=== PATIENT | male | born 1950 | race Caucasian/White ===

== ENCOUNTER 2020-08-18 07:10 | Outpatient (CLI) | payer MEDICARE, OTHER, SELFPAY ==
--- NOTE | 2020-08-18 07:14 | USCV_ITS ---
Austin Soriano Age: 69 Gender: M : 1950 Exam Date: 08/18/2020 07:25 Ordering Phys: Martita Roth MD Technologist: Giuseppe Jonas [place] [facility] [place]: BRUIT Risk Factors: Previous Vascular Surgery: Right Brachial BP: / Left Brachial BP: / Right Left Velocity (cm/s) Spectral Plaque Velocity (cm/s) Spectral Plaque Syst/Diast Broadening Syst/Diast Broadening 102.50/25.40 Prox CCA 124.50/ 22.30 77.20/ 19.80 Mid CCA 90.10 / 20.20 60.60/ 17.60 Distal CCA 72.90 / 20.20 61.80/ 19.50 Prox ICA 62.80 / 16.20 57.50/ 16.70 Mid ICA 66.80 / 42.50 58.60/ 17.20 Distal ICA 43.50 / 22.10 90.20 ECA 112.40 0.74 ICA/CCA 0.74 Antegrade Vertebral Antegrade 47.70/ 11.50 cm/s 70.70/ 17.90 cm/s Tri Subclavian Tri 75.40 109.4 0 CONCLUSIONS Right ICA stenosis <50%. Left ICA stenosis <50%. Mild atheromatous plaque right carotid bulb/ICA. Mild atheromatous plaque left carotid bulb/ICA. Normal antegrade Doppler flow noted in the right vertebral artery. Normal antegrade Doppler flow noted in the left vertebral artery. Saleem Sharif MD (Electronically Signed) Final Date: 18 August 2020 16:46 S
== END 2020-08-18 07:11 | disposition home or self-care (01) ==
PROVIDERS: Visit Provider Family Medicine
DX: R09.89 Other specified symptoms and signs involving the circulatory and respiratory systems (principal); I65.23 Occlusion and stenosis of bilateral carotid arteries
CPT/HCPCS: 93880

== ENCOUNTER → 2023-11-02 10:02 | Outpatient (BNVA) | payer MEDICARE, OTHER, SELFPAY | PROVIDERS: PCP Family Medicine; Visit Provider Student in an Organized Health Care Education/Training Program | DX: M79.642 Pain in left hand; M79.641 Pain in right hand; M72.0 Palmar fascial fibromatosis [Dupuytren] | CPT/HCPCS: 73130; 99203 ==

== ENCOUNTER 2024-06-13 15:16 | Outpatient (CLI) | payer MEDICARE, OTHER, SELFPAY ==
--- NOTE | 2024-06-13 15:20 | CTR_ITS ---
PROCEDURE INFORMATION: Exam: CT Abdomen And Pelvis Without And With Contrast Exam date and time: 06/13/2024 3:33 PM Age: 73 years old Clinical indication: Abdominal pain; Localized; Right lower quadrant (rlq); Prior surgery; Surgery date: 6+ months; Surgery type: Colectomy about 30 years ago; Patient HX: Ulcerative colitis; Additional info: Lower quadrant pain TECHNIQUE: Imaging protocol: Computed tomography of the abdomen and pelvis without and with contrast. Radiation optimization: All CT scans at this facility use at least one of these dose optimization techniques: automated exposure control; mA and/or kV adjustment per patient size (includes targeted exams where dose is matched to clinical indication); or iterative reconstruction. Contrast material: OMNIPAQUE 350; Contrast volume: 95 ml; Contrast route: INTRAVENOUS (IV); COMPARISON: ES surgery / GI images 09/12/2017 6:13 AM RADIATION DOSE METRICS: Total DLP (mGy-cm): 1236.69 FINDINGS: Lungs: There are minor atelectatic changes at the lung bases. Liver: There are few small hypodensities within the liver too small to adequately characterize but statistically likely representing small liver cysts. Gallbladder and biliary ducts: Two large gallstones otherwise gallbladder is unremarkable. Bile ducts are not dilated. Pancreas: Normal. No ductal dilation. Spleen: There are scattered calcified granulomas within the spleen, longstanding, otherwise spleen is unremarkable. Adrenal glands: Normal. No mass. Kidneys and ureters: There are few small hypodensities both kidneys some of which are too small to adequately characterize but statistically likely benign, otherwise kidneys are unremarkable. Stomach and bowel: Large bowel has been removed with right ileostomy present. There is a large parastomal hernia containing multiple small bowel loops without evidence of obstruction. Appendix: Appendix has been removed. Intraperitoneal space: Unremarkable. No free air. No significant fluid collection. Vasculature: Abdominal aorta is unremarkable. No evidence of aortic aneurysm or dissection. Lymph nodes: Unremarkable. No enlarged lymph nodes. Urinary bladder: Unremarkable as visualized. Reproductive: Prostate gland is moderately enlarged. Mild diffuse bladder wall thickening that may be chronic and related to the large prostate. Bones/joints: Unremarkable. No acute fracture. Soft tissues: See Stomach and bowel finding. CT/CT abdomen pelvis wo/w [id number] IMPRESSION: 1. No acute findings within the abdomen or pelvis. 2. Prior total colectomy and right-sided ileostomy with large parastomal hernia containing multiple small bowel loops without evidence of obstruction. 3. Cholelithiasis without evidence of acute cholecystitis. 4. Additional chronic findings as above.
[2024-06-13] MEDS: iohexol 350 mg/mL 500 mL Btl (per mL) IV (15:40)
== END 2024-06-13 15:17 | disposition home or self-care (01) ==
LOC: RAD 15:17
PROVIDERS: PCP Family Medicine; Visit Provider Family Medicine
DX: Z98.890 Other specified postprocedural states (principal); Z93.2 Ileostomy status; Z90.49 Acquired absence of other specified parts of digestive tract; D73.89 Other diseases of spleen; K43.5 Parastomal hernia without obstruction or gangrene; N40.0 Benign prostatic hyperplasia without lower urinary tract symptoms; K56.2 Volvulus; K80.20 Calculus of gallbladder without cholecystitis without obstruction; R10.31 Right lower quadrant pain
CPT/HCPCS: 74178

== ENCOUNTER 2024-07-31 14:59 | Emergency (ER) | payer MEDICARE, OTHER, SELFPAY ==
[2024-07-31] VITALS (15 sets, daily range): BP systolic 150–171; BP diastolic 51–92; PULSE 65–97; RESP 16–18; TEMP 36.6; O2SAT 96–99
--- NOTE | 2024-07-31 15:00 | ECG_ITS ---
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 Measurements Intervals [place] Rate: 81 P: 37 DE: 123 QRS: 13 QRSD: 101 T: 57 QT: 357 QTc: 415 Interpretive Statements SINUS RHYTHM NONSPECIFIC ST & T-WAVE ABNORMALITY Compared to ECG 09/11/2017 10:03:19 T-wave abnormality now present Supraventricular rhythm no longer present Electronically Signed On 07-31-2024 22:57:35 CDT by Dylan Ramos M.D. [id number]
--- NOTE | 2024-07-31 16:21 | XRR_ITS ---
PROCEDURE INFORMATION: Exam: XR Chest Exam date and time: 07/31/2024 4:26 PM Age: 73 years old Clinical indication: Pain; Chest pressure; Additional info: Chest pain TECHNIQUE: Imaging protocol: Radiologic exam of the chest. Views: 1 view. COMPARISON: CT abdomen pelvis wo/w [id number] 06/13/2024 3:33 PM FINDINGS: Lungs: Unremarkable. No consolidation. Pleural spaces: Unremarkable. No pleural effusion. No pneumothorax. Heart/Mediastinum: Prominent pericardial fat pad. Bones/joints: Prior median sternotomy. XR/XR chest 1V portable [id number] IMPRESSION: No acute cardiopulmonary findings.
--- NOTE | 2024-07-31 16:36 | XRR_ITS ---
PROCEDURE INFORMATION: Exam: XR Abdomen Exam date and time: 07/31/2024 4:43 PM Age: 73 years old Clinical indication: Abdominal pain; Prior surgery; Surgery date: 6+ months; Surgery type: Cholectomy/ostomy; Additional info: Abd pain TECHNIQUE: Imaging protocol: Radiologic exam of the abdomen. Views: Frontal supine view of the abdomen. 1 View. COMPARISON: CT abdomen pelvis wo/w [id number] 06/13/2024 3:33 PM FINDINGS: Gastrointestinal tract: Dilated small bowel loops in the left hemiabdomen. Dilated, air-filled bowel loop in the right hemiabdomen. Intraperitoneal space: Scattered surgical clips in the abdomen and pelvis. Organs: Calcified splenic granulomas. Bones/joints: Unremarkable. XR/XR abdomen 1V* [id number] IMPRESSION: Findings concerning for small bowel obstruction.
--- NOTE | 2024-07-31 16:37 | ED_ITS ---
HPI - Chest Pain 2 General: Chief Complaint: Chest Pain Stated Complaint: chest pressure back pain post op 4wk Time Seen by Provider: 07/31/24 16:18 History of Present Illness: 73-year-old man who presents to the [facility] room with upper low back pain with been going on for couple of days now. He says the pain has been quite severe. He had taken a hydrocodone from recent abdominal surgery that has not really helped. He says he has not had any abdominal pain in a few days. No nausea or vomiting. He has had good ostomy output. No fevers. No saddle numbness, no urinary retention or incontinence, no focal motor deficit, no sensory deficit. no recent fever. no cough. no shortness of breath. no chest pain. no abdominal pain. no nausea or vomiting. no dysuria. no altered mental status. no edema. Related Data Home Medications Medication Instructions Recorded Confirmed Unable to Assess 11/02/23 11/02/23 Allergies Allergy/AdvReac Type Severity Reaction Status Date / Time No Known Allergies Allergy Verified 07/31/24 15:11 Review of Systems 2 Narrative: Constitutional symptoms: Negative except as documented in HPI. Skin symptoms: Negative except as documented in HPI. Eye symptoms: Negative except as documented in HPI. ENMT symptoms: Negative except as documented in HPI. Respiratory symptoms: Negative except as documented in HPI. Cardiovascular symptoms: Negative except as documented in HPI. Gastrointestinal symptoms: Negative except as documented in HPI. Genitourinary symptoms: Negative except as documented in HPI. Musculoskeletal symptoms: Negative except as documented in HPI. Neurologic symptoms: Negative except as documented in HPI. Psychiatric symptoms: Negative except as documented in HPI. Endocrine symptoms: Negative except as documented in HPI. Physical Exam 2 Narrative: EXAM NARRATIVE: General: Alert, no acute distress. Skin: Warm, dry. Head: Normocephalic, atraumatic. Neck: Supple, trachea midline. Eye: Extraocular movements are intact. Ears, nose, mouth and throat: mucosa moist. Cardiovascular: Regular, Normal peripheral perfusion. Respiratory: Lungs are clear to auscultation, respirations are non-labored, breath sounds are equal, Symmetrical chest wall expansion. Gastrointestinal: Soft, Nontender, Non distended Musculoskeletal: Normal ROM, no deformity. Neurological: Alert and oriented, No focal neurological deficit observed. Psychiatric: Cooperative, appropriate mood & affect. Course 2 Vital Signs: Vital signs: Vital Signs Temperature 97.9 F 07/31/24 15:06 Pulse Rate 85 07/31/24 20:26 Respiratory Rate 16 07/31/24 20:26 Blood Pressure 153/92 07/31/24 20:00 Pulse Oximetry 96 07/31/24 20:26 Oxygen Delivery Me thod Room Air 07/31/24 20:26 MDM - Chest Pain Medical Decision Making Differential diagnosis for patient with chest pain includes but is not limited to and based on the above HPI, review of systems and physical exam: Pneumonia. unstable angina. angina. Acute coronary syndrome / SD. Pulmonary embolism. Costochondritis / musculoskeletal. Pleurisy. Pericarditis. Esophageal spasm. Pancreatis. Cholecystitis. Orders placed to evaluate differential diagnosis based on the above differential, HPI and physical exam Chest x-ray: No acute process. No infiltrate. No pneumothorax. This was reviewed and interpreted by myself the ER physician. Abdominal x-ray: Family was concerned about the patient's abdomen he has not been having pain today but had before so an x-ray was ordered. This has concern for small bowel obstruction so a CT of the abdomen was ordered this was reviewed and interpreted by myself the emergency room physician. I also reviewed the radiology report. CT of the abdomen pelvis with contrast concern for small bowel obstruction versus inflammatory process, concern for a right lower quadrant abscess, concern for cholecystitis with cholelithiasis. Patient has 0 abdominal pain and has good ostomy output. This was reviewed and interpreted by myself the emergency room physician. I also reviewed the radiology report. CT of the lumbar spine: No fracture. Good alignment. No step-offs. This was reviewed and interpreted by myself the emergency room physician. There are degenerative/spondylitic changes Consultation: I had the films uploaded and the surgeon on-call at [facility] reviewed the films and recommends transfer ER to ER. There are no beds. Lab Review: Laboratory results were reviewed and interpreted by myself the emergency room physician. No leukocytosis. No anemia. BUN and creatinine are slightly elevated at 16 and 1.2. As far as chest pain his serial cardiac markers are negative and EKG shows no ischemic changes. I reviewed the patient's medical record. Reexamination: Patient has continued to have some back pain. He has received a couple doses of medication for this. He still has no abdominal pain. No altered mental status. No focal motor deficits. We discussed the findings of the CT scan and that we are transferring him they agree with this. Assessment and plan: Back pain Noncardiac chest pain Possible small bowel obstruction Possible cholecystitis Possible right lower quadrant abscess -Patient has received pain medication with relief of his back pain. ? Dr. Jeffery Dutton at [facility] emergency room has accepted the patient. - Discussed findings and plan with patient. Answered any questions. - All laboratory values were reviewed and interpreted personally by myself, the ER physician - All imaging was reviewed and interpreted personally by myself, the ER physician. - Evaluation and treatment of this problem were appropriate in the emergency setting Lab Data 07/31/24 16:37 07/31/24 16:37 Radiology Impressions Chest X-Ray 07/31/24 16:21 IMPRESSION: No acute cardiopulmonary findings. Abdomen X-Ray 07/31/24 16:36 IMPRESSION: Findings concerning for small bowel obstruction. Abdomen/Pelvis CT 07/31/24 16:59 IMPRESSION: 1. Several mildly dilated small bowel loops, including the distal most small bowel immediately proximal to the right lower quadrant end ileostomy with fecalization of intraluminal contents. Areas of small bowel wall thickening are also noted along with surrounding fat stranding. Possible transition point at the level of the ostomy. While findings could represent a small bowel obstruction, ileus is also possible and may be associated with infectious/inflammatory enteritis with likely hypomotility. 2. Findings compatible with abscess formation in the right lower quadrant abdominal wall at the site of a previously seen parastomal hernia. 3. Cholelithiasis with findings suggestive of acute cholecystitis. A right upper quadrant ultrasound could be considered for further assessment if warranted. 4. Subtotal colectomy with right lower quadrant end ileostomy. 5. Ongoing moderate prostatomegaly. Correlate with PSA levels. Lumbar Spine CT 07/31/24 16:59 IMPRESSION: 1. No acute osseous findings. 2. Moderate spondylosis most pronounced at L3-L4 and L4-L5 with moderate spinal canal stenosis and moderate bilateral neural foraminal narrowing. Laboratory Results WBC 10.28 10^3/uL (3.29-11.43) 07/31/24 16:37 RBC 4.26 10^6/uL (3.85-5.65) 07/31/24 16:37 Hgb 11.90 g/dL (11.27-16.99) 07/31/24 16:37 Hct 37.5 % (37-53) 07/31/24 16:37 MCV 88.0 fl (82-101) 07/31/24 16:37 MCH 27.9 pg (27-33) 07/31/24 16:37 MCHC 31.7 g/dL (30-55) 07/31/24 16:37 RDW 13.4 % (12.1-15.1) 07/31/24 16:37 Plt Count 291 10^3/cmm (157-399) 07/31/24 16:37 MPV 9.6 fL (7.4-10.4) 07/31/24 16:37 Neut % (Auto) 76.6 % 07/31/24 16:37 Lymph % (Auto) 14.1 % 07/31/24 16:37 [place] % (Auto) 7.1 % 07/31/24 16:37 Eos % (Auto) 1.5 % 07/31/24 16:37 Baso % (Auto) 0.3 % 07/31/24 16:37 Neut # (Auto) 7.88 10^3/uL (1.8-7.7) H 07/31/24 16:37 Lymph # (Auto) 1.5 10^3/uL (0.8-4.8) 07/31/24 16:37 [place] # (Auto) 0.7 10^3/uL (0.2-0.9) 07/31/24 16:37 Eos # (Auto) 0.2 10^3/uL (0.0-0.8) 07/31/24 16:37 Baso # (Auto) 0.0 10^3/uL (0.0-0.1) 07/31/24 16:37 Nucleated RBC % (auto) 0 % 07/31/24 16:37 Nucleated RBCs # 0.0 /100WBC 07/31/24 16:37 Sodium 138 mmol/L (136-145) 07/31/24 16:37 Potassium 3.8 mmol/L (3.5-5.1) 07/31/24 16:37 Chloride 100 mmol/L (98-107) 07/31/24 16:37 Carbon Dioxide 25 mmol/L (22-29) 07/31/24 16:37 Anion Gap 16.8 (5-19) 07/31/24 16:37 BUN 16 mg/dL (8-23) 07/31/24 16:37 Creatinine 1.2 mg/dL (0.7-1.2) 07/31/24 16:37 GFR Calculation Not Reportable 07/31/24 16:37 Glucose 125 mg/dL (65-115) H 07/31/24 16:37 Calculated Osmolality 289 mOsm/kg (285-295) 07/31/24 16:37 Calcium 8.8 mg/dL (8.5-10.5) 07/31/24 16:37 Total Bilirubin 0.4 mg/dL (0.15-1.2) 07/31/24 16:37 AST 19 U/L (0-40) 07/31/24 16:37 ALT 12 U/L (0-41) 07/31/24 16:37 Alkaline Phosphatase 106 U/L (40-130) 07/31/24 16:37 Troponin T Baseline 38 ng/L (0-15) H 07/31/24 16:37 Troponin T 120 Minute 32.55 ng/L (0-15) H 07/31/24 18:37 Delta Troponin T -5.45 ABS# (0-10) L 07/31/24 18:37 NT-Pro-B Natriuret Pep 858 pg/mL (0-125) H 07/31/24 16:37 Total Protein 6.9 g/dL (6.6-8.7) 07/31/24 16:37 Albumin 3.9 g/dL (3.5-5.2) 07/31/24 16:37 Globulin 3.0 g/dL (1.3-4.6) 07/31/24 16:37 All radiology interpretation(s) finalized by discharge Discharge Plan Discharge Patient Disposition: Xfer Short-Term Hosp Clinical Impression: Back pain, Non-cardiac chest pain, Intra-abdominal abscess, Small bowel obstruction, Cholelithiasis Condition: Stable Referrals: Martita oRth MD [Primary Care Provider] - Coding Level of Care Code ED Ladle Liner for Lashell Duran
[2024-07-31 16:48] LABS: Basophils % 0.3 %; Eosinophils # 0.2 10^3/uL (0.0-0.8); Eosinophils % 1.5 %; Hematocrit 37.5 % (37-53); Lymphocytes # 1.5 10^3/uL (0.8-4.8); Lymphocytes % 14.1 %; Mean Corpuscular HGB Conc 31.7 g/dL (30-55); Mean Corpuscular Hemoglobin 27.9 pg (27-33); Mean Platelet Volume 9.6 fL (7.4-10.4); Monocytes # 0.7 10^3/uL (0.2-0.9); Monocytes % 7.1 %; Neutrophils # 7.88 10^3/uL (1.8-7.7); Neutrophils % 76.6 %; Nucleated Red Blood Cells % 0 %; Platelet Count 291 10^3/cmm (157-399); Red Blood Count 4.26 10^6/uL (3.85-5.65); Red Cell Distribution Width 13.4 % (12.1-15.1); White Blood Count 10.28 10^3/uL (3.29-11.43)
--- NOTE | 2024-07-31 16:59 | CTR_ITS ---
PROCEDURE INFORMATION: Exam: CT Lumbar Spine Without Contrast Exam date and time: 07/31/2024 6:06 PM Age: 73 years old Clinical indication: Low back pain; Additional info: Severe back pain TECHNIQUE: Imaging protocol: Computed tomography of the lumbar spine without contrast. Radiation optimization: All CT scans at this facility use at least one of these dose optimization techniques: automated exposure control; mA and/or kV adjustment per patient size (includes targeted exams where dose is matched to clinical indication); or iterative reconstruction. COMPARISON: MR lumbar spine wo con* [id number] 05/23/2018 1:35 PM RADIATION DOSE METRICS: Total DLP (mGy-cm): 819.91 FINDINGS: Bones/joints: No acute fracture. Vertebral body heights are maintained. [id number] degenerative changes throughout the lumbar spine. Moderate facet arthrosis in the lower lumbar spine. Disc bulge, ligamentum flavum thickening, and bilateral facet arthropathy at L3-L4 results in moderate spinal canal stenosis and moderate bilateral neural foraminal narrowing. Similar findings also seen at L4-L5. Soft tissues: Unremarkable. CT/CT lumbar spine wo con* [id number] IMPRESSION: 1. No acute osseous findings. 2. Moderate spondylosis most pronounced at L3-L4 and L4-L5 with moderate spinal canal stenosis and moderate bilateral neural foraminal narrowing.
--- NOTE | 2024-07-31 16:59 | CTR_ITS ---
PROCEDURE INFORMATION: Exam: CT Abdomen And Pelvis With Contrast Exam date and time: 07/31/2024 6:09 PM Age: 73 years old Clinical indication: Abdominal pain TECHNIQUE: Imaging protocol: Computed tomography of the abdomen and pelvis with contrast. Radiation optimization: All CT scans at this facility use at least one of these dose optimization techniques: automated exposure control; mA and/or kV adjustment per patient size (includes targeted exams where dose is matched to clinical indication); or iterative reconstruction. Contrast material: OMNI 350; Contrast volume: 100 ml; Contrast route: INTRAVENOUS (IV); COMPARISON: CT abdomen pelvis wo/w [id number] 06/13/2024 3:33 PM RADIATION DOSE METRICS: Total DLP (mGy-cm): 629.13 FINDINGS: Lungs: Mild bibasilar atelectasis. Heart: The heart appears mildly enlarged. Mitral annular calcifications. Coronary arteries: Scattered coronary artery calcifications. Liver: Scattered hepatic hypodensities remain too small to characterize but likely represent small cysts. No suspicious liver lesions. Gallbladder and biliary ducts: 1.8 cm calculus near the gallbladder neck. A smaller calculus is seen in the gallbladder fundus. Prominence of the gallbladder wall. Mild pericholecystic fat stranding. Mild intrahepatic biliary ductal dilatation. Pancreas: Normal. No ductal dilation. Spleen: Calcified splenic granulomas. Adrenal glands: Normal. No mass. Kidneys and ureters: Scattered subcentimeter hypodensities in bilateral kidneys remain too small to characterize but likely represent cysts. No hydronephrosis. Stomach and bowel: Status post subtotal colectomy with a right lower quadrant end ileostomy. Several segments of the small bowel appear mildly dilated and are predominantly gas-filled. There is fecalization of intraluminal contents within the distal most aspect of the small bowel immediately prior to the ostomy. Possible transition point in the right lower quadrant immediately proximal to the ostomy (for example series 3, image 58). Areas of small bowel wall thickening are noted along with surrounding fat stranding in the vicinity. Appendix: No evidence of appendicitis. Intraperitoneal space: Mild fat stranding along the mesenteric root. Vasculature: Unremarkable. No abdominal aortic aneurysm. Lymph nodes: A few prominent right lower quadrant mesenteric lymph nodes are seen. Urinary bladder: Unremarkable as visualized. Reproductive: The prostate remains enlarged and mildly heterogeneous. Bones/joints: Unremarkable. No acute fracture. Soft tissues: Interval reduction of the previously seen peristomal hernia. There is a thick-walled, mildly complex fluid collection at the site of the prior parastomal hernia which measures approximately 4.6 x 7.6 x 6.8 cm with surrounding subcutaneous fat stranding and edema. CT/CT abdomen pelvis w con* [id number] IMPRESSION: 1. Several mildly dilated small bowel loops, including the distal most small bowel immediately proximal to the right lower quadrant end ileostomy with fecalization of intraluminal contents. Areas of small bowel wall thickening are also noted along with surrounding fat stranding. Possible transition point at the level of the ostomy. While findings could represent a small bowel obstruction, ileus is also possible and may be associated with infectious/inflammatory enteritis with likely hypomotility. 2. Findings compatible with abscess formation in the right lower quadrant abdominal wall at the site of a previously seen parastomal hernia. 3. Cholelithiasis with findings suggestive of acute cholecystitis. A right upper quadrant ultrasound could be considered for further assessment if warranted. 4. Subtotal colectomy with right lower quadrant end ileostomy. 5. Ongoing moderate prostatomegaly. Correlate with PSA levels.
[2024-07-31] MEDS: HYDROmorphone 1 mg/mL INJ 1 mL 0.5 MG IVP ×2 (17:05→20:43)
[2024-07-31 17:12] LABS: Troponin(5th) Baseline 38 ng/L (0-15)
[2024-07-31 17:24] LABS: Alanine Aminotransferase 12 U/L (0-41); Albumin Level 3.9 g/dL (3.5-5.2); Alkaline Phosphatase 106 U/L (40-130); Anion Gap 16.8 (5-19); Aspartate Amino Transferase 19 U/L (0-40); Blood Urea Nitrogen 16 mg/dL (8-23); Calcium 8.8 mg/dL (8.5-10.5); Carbon Dioxide 25 mmol/L (22-29); Chloride 100 mmol/L (98-107); Creatinine Clr Calc Pharmacy 55.6887; Glucose 125 mg/dL (65-115); NT Pro B Type Natriuretic Pept 858 pg/mL (0-125); Osmolality Calculated 289 mOsm/kg (285-295); Potassium 3.8 mmol/L (3.5-5.1); Sodium 138 mmol/L (136-145); Total Bilirubin 0.4 mg/dL (0.15-1.2); Total Protein 6.9 g/dL (6.6-8.7)
[2024-07-31] MEDS: dexamethasone 10 mg/mL INJ IVP (17:42)
--- NOTE | 2024-07-31 18:21 | ECG_ITS ---
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 Measurements Intervals [place] Rate: 77 P: 29 NC: 120 QRS: 4 QRSD: 102 T: 47 QT: 378 QTc: 429 Interpretive Statements SINUS RHYTHM Compared to ECG 07/31/2024 15:00:18 T-wave abnormality no longer present Electronically Signed On 07-31-2024 23:04:39 CDT by Dylan Ramos M.D. [email or web address]
[2024-07-31] MEDS: iohexol 350 mg/mL 500 mL Btl (per mL) IV (18:27)
[2024-07-31 19:40] LABS: Troponin 5 2HR 32.55 ng/L (0-15)
[2024-07-31 19:42] LABS: Troponin 5 2HR Delta -5.45 ABS# (0-10)
== END 2024-07-31 22:01 | disposition short-term general hospital (02) ==
PROVIDERS: Emergency Provider Emergency Medicine; PCP Family Medicine
DX: K56.609 Unspecified intestinal obstruction, unspecified as to partial versus complete obstruction (principal); M54.50 Low back pain, unspecified; R07.89 Other chest pain; K65.1 Peritoneal abscess; K80.20 Calculus of gallbladder without cholecystitis without obstruction
CPT/HCPCS: 36415; 71045; 72131; 74018; 74177; 80053; 83880; 84484; 85025; 93005; 96374; 96375; 96376; 99285; J1100; J1171

== ENCOUNTER 2025-10-05 13:46 | Outpatient (CLI) | payer MEDICARE, OTHER, SELFPAY ==
--- NOTE | 2025-10-05 13:55 | CT_ITS ---
WS: [id number] CT ABDOMEN PELVIS TECHNIQUE: Noncontrast CT of the abdomen and pelvis with coronal and sagittal reformatted images. CLINICAL INFORMATION: RIGHT SIDED ABDOMINAL PAIN COMPARISON: 07/31/2024 DLP: 493.[address] scans at [facility] use at least one of these dose optimization techniques: automated exposure control; mA and/or kV adjustment per patient size (includes targeted exams where dose is matched to clinical indication); or iterative reconstruction. FINDINGS: Diffuse gallbladder wall thickening with induration and fluid distention of the gallbladder compatible with acute cholecystitis. Cholelithiasis. Large calculus near the gallbladder neck. Subsegmental atelectasis in the lung bases RIGHT greater than LEFT. Small esophageal hernia. Tiny cyst in the LEFT hepatic lobe and at the dome of the liver. Coronary calcification. Adrenal glands are normal. Splenic granulomas. Fatty atrophy of the pancreas. No hydronephrosis in either kidney. Cortical atrophy bilaterally. Small cyst upper pole LEFT kidney. Normal caliber abdominal aorta. Aortic calcification. Diffuse bladder wall thickening can be seen with chronic cystitis or bladder outlet obstruction. Enlarged prostate measuring 4.9 x 4.6 cm Prior subtotal colectomy with RIGHT lower quadrant end ileostomy. Parastomal hernia in the RIGHT lower quadrant although no evidence of high-grade obstruction. A few herniated loops of slightly distended and decompressed small bowel in the parastomal hernia New LEFT periumbilical hernia with herniated small bowel loop although no evidence of high-grade obstruction. CT/CT abdomen pelvis wo con [id number] IMPRESSION: 1. Diffuse gallbladder wall thickening with surrounding induration and inflamm atory stranding in the surrounding mesenteric fat. Findings suspicious for acut e cholecystitis. This could be further evaluated with ultrasound. Large calculu s near the gallbladder neck similar to the prior studies. 2. Prior subtotal colectomy with ileostomy and RIGHT lower quadrant peristomal hernia. No evidence of high-grade obstruction. Recommend correlation with ileo stomy function. 3. New LEFT periumbilical hernia containing a loop of nonobstructed small pantera l 4. Markedly enlarged prostate with diffuse bladder wall thickening likely due to cystitis or bladder outlet obstruction. 5. Subsegmental atelectasis RIGHT greater than LEFT lower lobe.
== END 2025-10-05 13:47 | disposition home or self-care (01) ==
PROVIDERS: PCP Electrodiagnostic Medicine; Visit Provider Electrodiagnostic Medicine
DX: K80.20 Calculus of gallbladder without cholecystitis without obstruction (principal); R93.3 Abnormal findings on diagnostic imaging of other parts of digestive tract; Z98.890 Other specified postprocedural states; K43.5 Parastomal hernia without obstruction or gangrene; K42.9 Umbilical hernia without obstruction or gangrene; N40.0 Benign prostatic hyperplasia without lower urinary tract symptoms; J98.11 Atelectasis; K44.9 Diaphragmatic hernia without obstruction or gangrene; I25.10 Atherosclerotic heart disease of native coronary artery without angina pectoris; D73.89 Other diseases of spleen; K86.89 Other specified diseases of pancreas; N26.1 Atrophy of kidney (terminal); N28.1 Cyst of kidney, acquired; I70.0 Atherosclerosis of aorta; N32.89 Other specified disorders of bladder; R93.89 Abnormal findings on diagnostic imaging of other specified body structures
CPT/HCPCS: 74176

== ENCOUNTER 2025-10-05 16:18 | Emergency (ER) | payer MEDICARE, OTHER, SELFPAY ==
[2025-10-05] VITALS (7 sets, daily range): BP systolic 130–145; BP diastolic 70–101; PULSE 79–87; TEMP 36.5; O2SAT 92–97; BMI 26.2
--- OUTSIDE RECORDS SUMMARY | 2025-10-05 16:24 | XMS_ITS | Data Portability ---
Author Organization [facility] Adolfo Salas [facility] Kayley Chase, [facility] Address [address] [place] [address] Care Team Providers Care Alarm Technician Name Role Phone GLENIS HURST Primary Care Provider Assessment Encounter Date Assessment Date Assessment LastModified by Organization Details LastModified Time 06/24/2025 06/24/2025 Document scribed by Minh Suggs Scribe. I was present during interview and exam. I have reviewed and agree with above documentation . Dr. Henry Barreto. [email or web address] Not available 06/24/2025 15:48:59 09/24/2025 09/24/2025 Document scribed by Minh Suggs Scribe. I was present during interview and exam. I have reviewed and agree with above documentation . Dr. Henry Barreto. [email or web address] Not available 09/24/2025 12:02:25 10/05/2025 10/05/2025 Document scribed by Minh Suggs Scribe. I was present during interview and exam. I have reviewed and agree with above documentation . Dr. Henry Barreto. [email or web address] Not available 10/05/2025 12:08:58 Plan of Treatment Reminders Order Date Submit Date Provider Last Modified By Organization Details Last Modified Time Details Appointments OFFICE VISIT 20 2024 10:00A M Henry Barreto, DO Not available Not available Not available LAB 2024 11:40A M LAB Not available Not available Not available RECHECK 2025 09:50A M Henry Barreto, DO Not available Not available Not available Lab CBC 2024 025 [email or web address] [facility], [address], [address], [place], [address], 10/05/2025 13:29:25 C-react dinesh protein , quantit ative, serum or plasma 2024 025 [email or web address] 7 [facility], [address], [place], [address], 10/05/2025 13:29:25 CMP, serum or plasma 2024 025 [facility], [address], [address], [place], [address], 10/05/2025 13:52:44 thyrotr opin, QN, serum or plasma 2024 025 [facility], [address], [address], [place], [address], 10/05/2025 13:51:28 T3, free, serum or plasma 2024 025 [email or web address] 7 [facility], [address], [facility], [place], [address], 10/05/2025 13:29:25 T4, free, serum 2024 025 [email or web address] 7 [facility], [address], [address], [place], [address], 10/05/2025 13:29:25 PTH (parath yroid hormone ), intact, serum or plasma 2024 025 [email or web address] 7 [facility], [address], [address], [place], [address], 10/05/2025 13:29:25 CMP, serum or plasma 2024 025 [email or web address] 7 [facility], [address], [facility] 1, [place], [address], 09/24/2025 14:29:31 lipid panel, blood 2024 025 [email or web address] 7 [facility], [address], [facility], [place], [address], 09/24/2025 14:29:31 CBC 2024 025 [email or web address] 7 [facility], [address], [facility] 1, [place], [address], 09/24/2025 14:29:31 Referral orthope dic surgeon referra l 2024 025 [email or web address] Josep Washington , [address] [place], [address], 07/27/2025 15:44:42 Procedures None recorde d. Surgeries None recorde d. Imaging CT, abdomen + pelvis, w/ contras t - with oral and IV contras t, STAT 2024 025 [facility] (Scheduling Orders), [address] [place], [address], 10/05/2025 15:55:18 XR, shoulde r, 2 or more view [address] ([facility]), [address] [place], [address], 06/25/2025 18:27:47 XR, elbow, 3 or more view [address] ([facility]), [address] [place], [address], 06/25/2025 18:27:47 Medication Orders prednis one 20 mg tablet 2024 025 [facility], [address], [place], [place], [id number], 07/08/2025 05:01:16 hydroco done 5 mg-acet aminoph en 325 mg tablet 2024 025 [facility], [address], [place], [place], [id number], 06/24/2025 17:54:53 ondanse randa HCl (PF) 4 mg/2 mL injecti on solutio n 2023 024 [email or web address] Not available 06/24/2025 15:10:09 ondanse randa 4 mg disinte grating tablet 2023 025 [id number], [address], [facility], [place], [address], 06/24/2025 15:10:41 Patient TargetsNo targets recorded. Patient InstructionsNo instructions recorded. Reason for Referral Orthopedic Surgeon Referral for Pain of elbow region Referring Physician: Henry Barreto, Family Medicine, Encounter Date: 06/24/2025 Results Created Date Observation Date Name Description Value Unit Range Abnormal Flag Note LastModifiedBy Organization Detail LastModifiedTime 09/24/2009/24/2025 CBC WBC 8.4 x10 4.5 - 10.5 Not Available [facility] [address] [facility] [address], [place], [address], 09/24/2025 13:07:43 09/24/20 25 09/24/2025 CBC RBC 5.02 x10 4.30 - 5.90 Not Available [facility] [address], [place], [address], 09/24/2025 13:07:43 09/24/20 25 09/24/2025 CBC HGB 15.1 g/dL 13.5 - 18.0 Not Available [facility] [address] [facility] 1, [place], [address], 09/24/2025 13:07:43 09/24/20 25 09/24/2025 CBC HCT 45.6 % 35.0 - 60.0 Not Available [facility] [address] [facility] [address], [place], [address], 09/24/2025 13:07:43 09/24/20 25 09/24/2025 CBC MCV 90.8 fL 80.0 - 99.9 Not Available [facility] [address] [facility] [address] 1, [place], [address], 09/24/2025 13:07:43 09/24/20 25 09/24/2025 CBC MCH 30.0 pg 27.0 - 32.0 Not Available [facility] [address] [facility], [place], [address], 09/24/2025 13:07:43 09/24/20 25 09/24/2025 CBC MCHC 33.0 g/dL 32.0 - 36.0 Not Available [facility] [address] [facility] [address] [address], [place], [address], 09/24/2025 13:07:43 09/24/20 25 09/24/2025 CBC RDW 14.1 % 11.5 - 14.5 Not Available [facility] [address] [facility] [address] 1, [place], [address], 09/24/2025 13:07:43 09/24/20 25 09/24/2025 CBC plt 247.9 x10 150.0 - 451.0 Not Available [facility] [address] [facility] [address] [address], [place], [address], 09/24/2025 13:07:43 09/24/20 25 09/24/2025 CBC lymphocytes % 17.0 % 20.0 - 50.0 low Not Available [facility] [address] [facility], [place], [address], 09/24/2025 13:07:43 09/24/20 25 09/24/2025 CBC granulcytes % 73.9 % 30.0 - 70.0 high Not Available [facility] [address] [address], [place], [address], 09/24/2025 13:07:43 09/24/20 25 09/24/2025 CBC monocytes % 5.8 % 2.0 - 16.0 Not Available [facility] [address] [address], [place], [address], 09/24/2025 13:07:43 09/24/20 25 09/24/2025 CBC granulcytes# 6.2 x10 Not Destini ilable [facility] [address] [address], [place], [address], 09/24/2025 13:07:43 09/24/20 25 09/24/2025 CBC lymphocytes # 1.4 x10 Not Available [facility] [address] [address], [place], [address], 09/24/2025 13:07:43 09/24/20 25 09/24/2025 CBC monocytes # 0.5 x10 Not Avai lable [facility] [address] [address], [place], [address], 09/24/2025 13:07:43 09/24/20 25 09/24/2025 LIPID PROFI LE (MALE ) cholesterol 229.0 mg/dL 0.0 - 200.0 high Not Available [facility] [address] [facility], [place], [address], 09/24/2025 13:36:33 09/24/20 25 09/24/2025 LIPID PROFI LE (MALE ) trig 139.0 mg/dL 0.0 - 150.0 Not Available [facility] [address] [facility] [address], [place], [address], 09/24/2025 13:36:33 09/24/20 25 09/24/2025 LIPID PROFI LE (MALE ) HDL - direct 70.0 mg/dL >40.0 Not Available [facility] [address] [facility] [address], [place], [address], 09/24/2025 13:36:33 09/24/20 25 09/24/2025 LIPID PROFI LE (MALE ) VLDL - direct 27.8 mg/dL Not Available [facility] [address] [facility] [address], [place], [address], 09/24/2025 13:36:33 09/24/20 25 09/24/2025 LIPID PROFI LE (MALE ) LDL - direct 131.2 mg/dL 0.0 - 130.0 high Not Available [facility] [address] [facility] [address], [place], [address], 09/24/2025 13:36:33 09/24/20 25 09/24/2025 CMP (MALE ) glucose 97.0 mg/dL 60.0 - 99.0 Not Available [facility] [address] [address], [place], [address], 09/24/2025 13:36:35 09/24/20 25 09/24/2025 CMP (MALE ) BUN (blood urea nitrogen) 30.0 mg/dL 10.0 - 26.0 high Not Available [facility] [address] [facility] [address], [place], [address], 09/24/2025 13:36:35 09/24/20 25 09/24/2025 CMP (MALE ) creatinine (serum) 1.7 mg/dL 0.4 - 1.5 high Not Available [facility] [address] [facility] [address], [place], [address], 09/24/2025 13:36:35 09/24/20 25 09/24/2025 CMP (MALE ) BUN/creatini ne ratio 18.18 ratio Not Available [facility] [address] [facility] [address], [place], [address], 09/24/2025 13:36:35 09/24/20 25 09/24/2025 CMP (MALE ) total protein 7.2 g/dL 6.0 - 8.5 Not Available [facility] [address] [facility] [address], [place], [address], 09/24/2025 13:36:35 09/24/20 25 09/24/2025 CMP (MALE ) total bilirubin 0.8 mg/dL 0.2 - 1.3 Not Available [facility] [address] [facility] [address], [place], [address], 09/24/2025 13:36:35 09/24/20 25 09/24/2025 CMP (MALE ) albumin 4.5 g/dL 3.5 - 5.5 Not Available [facility] [address] [facility] [address], [place], [address], 09/24/2025 13:36:35 09/24/20 25 09/24/2025 CMP (MALE ) globulin 2.7 calc Not Available [facility] [address] [facility] [address], [place], [address], 09/24/2025 13:36:35 09/24/20 25 09/24/2025 CMP (MALE ) AST (SGOT) 31.0 U/L 0.0 - 46.0 Not Available [facility] [address] [facility] [address], [place], [address], 09/24/2025 13:36:35 09/24/20 25 09/24/2025 CMP (MALE ) altv (SGPT) 14.0 U/L 13.0 - 69.0 Not Available [facility] [address] [facility] [address], [place], [address], 09/24/2025 13:36:35 09/24/20 25 09/24/2025 CMP (MALE ) A/G ratio 1.7 ratio Not Available [facility] [address] [facility] [address], [place], [address], 09/24/2025 13:36:35 09/24/20 25 09/24/2025 CMP (MALE ) ALP phos 55.0 U/L 30.0 - 140.0 Not Available [facility] [address] [facility] [address], [place], [address], 09/24/2025 13:36:35 09/24/20 25 09/24/2025 CMP (MALE ) calcium 8.8 mg/dL 8.4 - 10.5 Not Available [facility] [address] [facility] [address], [place], [address], 09/24/2025 13:36:35 09/24/20 25 09/24/2025 CMP (MALE ) sodium 134.0 mmol/ L 136.0 - 145.0 low Not Available [facility] [address] [facility] [address], [place], [address], 09/24/2025 13:36:35 09/24/20 25 09/24/2025 CMP (MALE ) potassium 3.9 mmol/ L 3.5 - 5.1 Not Available [facility] [address] [facility] [address], [place], [address], 09/24/2025 13:36:35 09/24/20 25 09/24/2025 CMP (MALE ) chloride 101.0 mmol/ L 98.0 - 110.0 Not Available [facility] [address] [facility] [address], [place], [address], 09/24/2025 13:36:35 09/24/20 25 09/24/2025 CMP (MALE ) C02 23.0 mmol/ L 22.0 - 31.0 Not Available [facility] [address], [place], [address], 09/24/2025 13:36:35 09/24/20 25 09/24/2025 CMP (MALE ) anion gap 10.0 calc Not Available [facility] [address] [facility], [place], [address], 09/24/2025 13:36:35 09/24/20 25 09/24/2025 CMP (MALE ) osmolality 282.9 calc Not Available [facility] [address] [facility], [place], [address], 09/24/2025 13:36:35 09/24/20 25 09/24/2025 CMP (MALE ) eGFR calculated 52.7 Not Available [facility] [address] [facility], [place], [address], 09/24/2025 13:36:35 06/25/20 25 06/24/2025 XR, shoul candida, 2 or more view No observ ation record ed. [facility] [address], [place], [address], 07/06/2025 17:09:57 06/25/20 25 06/24/2025 XR, elbow , 3 or more view No observ ation record ed. [facility] [address], [place], [address], 07/06/2025 17:09:58 10/05/20 25 10/05/2025 CT, abdom en + pelvi s, w/ contr ast No observ ation record ed. [facility] [address] [place], [address], 10/05/2025 15:55:19 Result Notes None recorded. Problems Name Problem SNOMED Code Status Onset Date Resolution Date Notes Provider Name and Address Organization Details Recorded Time Essential hypertension 03273875 Active 2024 Ashley schrader [facility] 5 15:11:17 Acute poliomyelitis 989965043 Active 2024 Ashley schrader [facility] 5 15:14:25 Large prostate 469371405 Active 2024 Ashley schrader [facility] 5 15:14:48 History of gout 854359246 Active 2024 Ashley schrader [facility] 5 15:15:23 Hyperlipidemia 66285344 Active 2024 Orlando schrader [facility] 5 12:14:22 Ulcerative colitis 77522941 Active 2024 Orlando schrader [facility] 5 12:28:20 Multinodular goiter 144404923 Active 2024 Orlando schrader [facility] 5 12:28:21 Problem Notes None recorded. Procedures Surgical History Date Name Laterality Status Provider Name and Address Organization Details Recorded Time 3 Laceration Repair completed Jessica Du [facility] 03/25/2023 15:17:41 3 Laceration Repair completed WES CAO PA-C [address] [place], [address], [facility] 03/23/2023 10:08:42 Knee Surgery completed [facility], [place] 06/24/2025 15:28:48 procedure on bone of ankle completed [facility], [place] 06/24/2025 15:29:06 [facility] 15:29:18 operation on heart completed [facility], [place] 06/24/2025 15:29:46 [facility] 15:30:46 Imaging Results None recorded. Procedure Notes None recorded. Medical Equipment None Reported. Allergies No known drug allergies Medications Name Sig Start Date Stop Date Status Note LastModified by Organization Details LastModified Time Anti-Diarrh eal (loperamide ) 2 mg tablet 06/24 completed Not Available Not Available Not Available atorvastati n 40 mg tablet TAKE ONE TABLET BY MOUTH AT BEDTIME active Not Available Not Available No t Available ketoconazol e 2 % shampoo Apply topically TO SCALP twice a WEEK active Not Available Not Available No t Available hydrocodone 5 mg-acetamin ophen 325 mg tablet TAKE ONE TABLET BY MOUTH THREE TIMES DAILY as needed for SEVERE pain active Not Available Not Available No t Available ondansetron HCl 4 mg tablet TAKE ONE TABLET BY MOUTH EVERY SIX hours NEEDED FOR nausea AND vomiting. 06/24 completed Not Available Not Available Not Available prednisone 20 mg tablet Take 1 tablet every day by oral route for 7 days. 07/08 completed Not Available Not Available Not Available triamcinolo ne acetonide 0.025 % lotion Apply topically TO ostomy irritatio n THREE TIMES DAILY FOR TWO WEEKS. 06/24 completed Not Available Not Available Not Available allopurinol 100 mg tablet TAKE 2 TABLETS BY MOUTH DAILY active Not Available Not Available No t Available sildenafil 100 mg tablet TAKE ONE TABLET BY MOUTH every other DAY NEEDED 30 MINUTES prior TO intercour se active Not Available Not Available No t Available oxycodone-a cetaminophe n 5 mg-325 mg tablet 06/24 completed Not Available Not Available Not Available tamsulosin 0.4 mg capsule TAKE 1 CAPSULE BY MOUTH DAILY active Not Available Not Available No t Available amlodipine 10 mg tablet TAKE 1 TABLET BY MOUTH DAILY active Not Available Not Available No t Available nystatin 100,000 unit/gram topical cream Apply ONE applicati on topically TWICE DAILY 06/24 completed Not Available Not Available Not Available hydrochloro thiazide 25 mg tablet TAKE 1 TABLET BY MOUTH DAILY active Not Available Not Available No t Available mupirocin 2 % topical ointment apply ONE applicati on topically THREE TIMES DAILY 06/24 completed Not Available Not Available Not Available ondansetron 4 mg disintegrat ing tablet PLACE 1 TABLET ON TOP OF TONGUE AND ALLOW TO DISSOLVE 3 TIMES A DAY NEEDED 06/24 completed Not Available Not Available Not Available betamethaso ne dipropionat e 0.05 % lotion Apply a thin layer topically daily TO affected AREA FOR SEVEN DAYS. 06/24 completed Not Available Not Available Not Available ondansetron HCl (PF) 4 mg/2 mL injection solution Take 4 mg by injection route. 06/24 completed Not Available Not Available Not Available Paxlovid 300 mg (150 mg x 2)-100 mg tablets in a dose pack TK 2 NIRMATREL VIR TS AND 1 RITONAVIR T TOGETHER PO BID FOR 5 DAYS BID FOR 5 DAYS 07/15 completed Not Available Not Available Not Available Vitals Date Recorded Body height Body mass index (BMI) Body weight Oxygen saturation Heart rate Respiratory rate Systolic And Diastolic Provider Name and Address Organization Details Last Updated DateTime 5 175.26 cm 29.7 kg/m2 51712.7 7 g 97 % 79 /min 18 /min 138/88 mm[Hg] Ashley James [facility] 5 15:37:09 Date Recorded Body height Body mass index (BMI) Body weight Oxygen saturation Heart rate Respiratory rate Body temperature Systolic And Diastolic Provider Name and Address Organization Details Last Updated DateTime 4 175.26 cm 27.2 kg/m2 41953 g 98 % 84 /min 18 /min 98.2 [degF] 128/80 mm[Hg] Reyna Dyer [facility] 4 17:43:29 Date Recorded Body height Body mass index (BMI) Body weight Provider Name and Address Organization Details Last Updated DateTime 07/31/2024 175.26 cm 25.7 kg/m2 36783.07 g Reyna Dyer [facility] 07/31/2024 15:47:56 Date Recorded Body height Body mass index (BMI) Body weight Oxygen saturation Heart rate Respiratory rate Systolic And Diastolic Provider Name and Address Organization Details Last Updated DateTime 5 175.26 cm 28.3 kg/m2 74421.2 4 g 96 % 82 /min 18 /min 130/70 mm[Hg] Ashley James [facility] 5 11:48:59 Date Recorded Body height Body mass index (BMI) Body weight Oxygen saturation Heart rate Respiratory rate Systolic And Diastolic Provider Name and Address Organization Details Last Updated DateTime 5 175.26 cm 27.5 kg/m2 89302.8 8 g 97 % 83 /min 18 /min 128/88 mm[Hg] Ashley [facility] 5 12:08:09 Social History None recorded. Functional Status None recorded. Mental Status None recorded. Family History Relationship Description Onset Age of this Age Resolved Age Notes LastModified by Organization Details LastModified Time Father No current problems or disability [email or web address] Not available 06/24 15:37:44 Mother No current problems or disability [email or web address] Not available 06/24 15:37:44 Medical History No medical history recorded. Immunizations Vaccine Type Date Status Note Provider Nam e and Address Organization Details Recorded Time Influenza, split virus, trivalent, PF 5 completed CAL schrader [facility] 06/24/2025 17:16:51 Influenza, split virus, quadrivalent, preservative 0 completed Jackie schrader [facility] 03/30/2023 08:17:27 Influenza, adjuvanted, trivalent, PF 8 completed Jackie schrader [facility] 03/30/2023 08:17:27 COVID-19, mRNA, LNP-S, PF, 30 mcg/0.3 mL dose 1 completed Jackie schrader [facility] 03/30/2023 08:17:27 COVID-19, mRNA, LNP-S, PF, 30 mcg/0.3 mL dose 1 completed Jackie schrader [facility] 03/30/2023 08:17:27 COVID-19, mRNA, LNP-S, PF, 30 mcg/0.3 mL dose 2 completed Jackie schrader [facility] 03/30/2023 08:17:27 COVID-19, mRNA, LNP-S, PF, 30 mcg/0.3 mL dose 1 completed Jackie schrader [facility] 03/30/2023 08:17:27 COVID-19, mRNA, LNP-S, bivalent, PF, 30 mcg/0.3 mL dose 3 completed Jackie schrader [facility] 03/30/2023 08:17:27 COVID-19, mRNA, LNP-S, bivalent, PF, 30 mcg/0.3 mL dose 2 completed Jackie schrader [facility] 03/30/2023 08:17:27 Influenza, high-dose, trivalent, PF 7 completed Jackie schrader [facility] 03/30/2023 08:17:27 Influenza, split virus, trivalent, preservative 1 completed Jackie schrader [facility] 03/30/2023 08:17:27 Influenza, split virus, trivalent, preservative 2 completed Jackieleonie schrader [facility] 03/30/2023 08:17:27 COVID-19, mRNA, LNP-S, PF, jan-sucrose, 30 mcg/0.3 mL 3 completed Not Available [facility] 10/05/2025 10:55:32 Influenza, split virus, trivalent, preservative 3 completed Not Available [facility] 10/05/2025 10:55:32 Influenza, high-dose, trivalent, PF 4 completed Not Available [facility] 10/05/2025 10:55:32 COVID-19, mRNA, LNP-S, PF, 50 mcg/0.5 mL 4 completed Not Available [facility] 10/05/2025 10:55:32 Tdap 3 completed WES CAO PA-C [address] [place] [address], [id number], [facility] 03/23/2023 10:06:04 Past Encounters Encounter ID Performer Location Encounter Start Date Encounter Closed Date Diagnosis/Indication Diagnosis SNOMED-CT Code Diagnosis ICD10 Code Diagnosis IMO Codes Diagnosis Note [id number] WES CAO PA-C [facility] ([facility]) [address] [place] [phone] 03/16/2023 15:43:29 03/28/2023 12:34:29 Administration of tetanus vaccine 235563122 Z23 Laceration of upper arm 418647964 S41.111A [id number] JOSE CARRENO [facility] ([facility]) [address] [place] [id number] 03/25/2023 14:04:14 03/25/2023 15:34:53 Laceration of finger of right hand [id number] 1772273 S61.210A Discussed to wash the laceration with soap and water daily. Keep covered if outside to keep wound clean. If you develop any signs of infection such as redness, swelling, increased pain, drainage - follow up with PCP or return to walk-in clinic. Apply a thin layer of petroleum jelly to the would followed by a telfa dressing daily to keep wound/stit ches from drying out. Follow up as directed in 7-10 days for suture removal. Return to clinic if any changes, any worsening, any concerns.P atient verbalized understand ing of plan. [id number] MARLENY BRANNON [facility] ([facility]) [address] [place] [id number] 03/30/2023 08:05:01 03/30/2023 14:38:05 Removal of suture 64381157 Z48.02 [id number] MARLENY BRANNON [facility] ([facility]) [address] [place], [place] [phone] 04/05/2023 11:53:42 04/05/2023 13:20:46 [id number] JOSE RAY [facility] ([facility]) [address] [place] [id number] 07/15/2024 17:38:39 07/15/2024 18:34:19 Nausea [id number] R11.0 Discussed with pt and family at length regarding use of zofran for nausea. small frequent sips of fluid. Take sips of pedialyte, Boost, and water. Continue to eat bites or small meals 6-7 times per day. Pt has f/u next week. If you develop fever, abd pain is worsening, no urine output over 12 hours, or symptoms worsen then f/u in ER20 minutes spent counseling patient and family. [id number] Sean Buenrostro MD [facility] ([facility]) [address] [place] [phone] 07/31/2024 15:41:50 07/31/2024 17:11:05 [id number] Henry Barreto DO [facility] ([facility]) [address] [place] [phone] 06/24/2025 14:40:15 06/25/2025 18:27:47 Administration of influenza vaccine [id number] Z23 Fluvax today. Pain of elbow region [id number] M25.522 [id number] 06/25/25: I have independen tly reviewed and interprete d XR results, d/w patient. Dr. Juan Barreto. Pending official reading. concern for occult fx. Will refer to Dr. Washington.06/24: XR L elbow today, concerned for fx. If Ortho is needed pt ok with Dr. Washington locally. Phone f/u. Today Prednisone for inflammati on, Tylenol for mild to moderate pain, Hydrocodon e for severe pain. Pain of le ft shoulder region [id number] M25.512 [id number] XR L shoulder today. Phone f/u. [id number] Henry Barreto DO [facility] ([facility]) [address] [place] [phone] 09/24/2025 11:07:24 09/24/2025 12:55:47 Essential hypertension 11270806 I10 09084 Stable, continue current tx. lab today. History of gout [id number] 4 Z87.39 051682 Stable. Pain in left arm 5316570 00 M79.602 [id number] 09/24/25: Shoulder and elbow, has seen Ortho, now resolved, pt has opted not to do any surgery. [id number] Henry Barreto DO [facility] ([facility]) [address] [place] [phone] 10/05/2025 10:55:12 10/05/2025 13:49:09 Right sided abdominal pain [id number] R10.9 675258 10/05/25: Discussed pt needing CT to r/o blockage from hernia, offered to send to ER for CT or we can order outpt CT, can't guarantee it can be done today, may need to be scheduled for tomorrow, pt prefers to do outpt. Counseled see ER if pain worsens, becomes severe, unable to have a BM, to drink plenty of water, eat a bland diet right now. Essential hypertension 46704134 I10 24871 Stable, continue current tx. Reviewed and discussed recent lab. Hyperlipidemia 73789496 E78.5 [id number] Reviewed and discussed lipid panel, continue Atorvastat in 40mg daily. Ulcerative colitis 49711 004 K51.919 [id number] S/p total colectomy in 1965. Multinodular goiter 2375 37758 E04.2 [id number] Story: several bx approx 2004, negative. Health Concerns Section Related Observation LastModified by Organization Detai ls LastModified Time None Recorded Concern Status LastModified by Organization Details LastModified Time None Recorded Advance Directives Directive None Recorded Payers Insurance Date Sequence Insurance Name Policy Number Policy Mccain Covered Member ID Mccain Member ID Guarantor Name 10/05/2025 2 [employer] - [employer] - SECONDARY TO MEDICARE [place] Bo [id number] Austin Bo 09/24/2025 1 [place]: [place] Bo [id number] Austin Bo 09/24/2025 [place] - [facility] (MEDICARE) Austin Bo [id number] Austin Bo Notes Date Note Type Note Provider Name and Address Organization Details Recorded Time 07/15/2024 text/html ROS as noted in the HPI walk in patientpatient is here today for hernia repair he had done on 07-02-24 and they found a rupture in his stomach that had to be repaired and had to have his ostomy repaired also. Patient stayed in the hospital until Sunday and that was the first day he was able to eat. Patient is struggling to eat/drink. No fever. Has urinated several times today. Pt states small amounts and a little dark. JOSE RAY [address] [place] [address], [phone], [facility], LKaveh 07/16/2024 15:40:09 07/31/2024 text/html Back PainReporte d by Patient walk in patientpatient is here today for serve back pain that started this morning and has got worse as the day has gone on and now he is having chest pain. Patient has taken 3 hydrocodone and it has not helped. Patient is going to go to the ER Reyna schrader [facility], LHermelindaLHermelindaCHermelinda 07/31/2024 15:58:17 06/24/2025 text/html Annual WellnessReported by PatientSocial/Behavior al HistoryFor diet and nutrition, patient reportshealthy diet. For fracture risk, patient reportsno history of fractures,no recent explained fracture,no sudden unexplained fractures, andno previous musculoskeletal injuries. For physical activity, patient reportsexercises on a regular basis,recent increase in physical activity, andgood physical condition. For additional lifestyle factors, patient reportsno tobacco useanddrinks alcohol (mild-moderate).Mental Status:For depression risk, patient reportsnever feels sad, empty, or tearful,no loss of interest in activities,no significant changes in weight,no sleep disturbances or insomnia,no agitation,no loss of energy,no feelings of worthlessness or guilt,no thoughts of suicide,no history of depression, andno history of mood disorders.Functional AbilityFor hearing, patient reportswears hearing aids. For vision, patient reportsno vision problems.ROS as noted in the HPI Pt presents to establish care, previous pcp was Dr. Hurst Last labs Fall 2023. H/o Gout, taking Allopurinol. HTN, taking Amlodipine and HCTZ. BPH, taking Tamsulosin. Polio, resulting in left leg wkns. Denies any h/o clots, PR, CVA. Shx: Open heart surgery in [place] appt 2014, Colectomy d/t , with colostomy now. Smoked from age [age], h/o chewing tobacco.Nightly beer. 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 07/07/2025 12:06:13 09/24/2025 text/html ROS as noted in the HPI Pt presents for recheck 3 months HTN, Gout, LUE pain/ injury. He saw Sabiha Paniagua on 07/16/25 regarding left elbow and shoulder pain:PLAN:Assessment & Plan1. Left elbow fracture:The patient reported a left elbow fracture from a fall on concrete about 3 weeks ago. The x-ray showed a potential small spot on the olecranon, but no significant fracture requiring surgery.He was advised to rest the elbow and apply ice for the first few weeks to reduce swelling and inflammation. Afterward, heat may be used to increase blood supply and relax the muscles.He should avoid heavy lifting with the affected arm and use pads or cushioning when leaning on the elbow to prevent bursitis and potential infection.If leaning on the elbow causes pain and doing it repetitively, it may indicate inflammation or fluid accumulation, which could lead to infection. In such cases, oral antibiotics or surgical intervention might be necessary.2. Shoulder injury:The patient reported a shoulder injury from about 5 months ago, initially thought to be arthritis but likely more severe due to persistent pain and limited range of motion.An MRI will be ordered to further investigate the shoulder injury. Depending on the results, potential treatments include physical therapy, sports medicine consultation, or possibly surgery for ligament repair. The patient should avoid activities that exacerbate the pain, such as lifting the arm away from the body or overhead. Resting the shoulder and avoiding strenuous activities like using a chainsaw may help in the healing process. ======He had f/u with [facility] 08/12/25, MRI negative for fx or dislocation of shoulder.ASSESSMENT/PL AN:ICD-10-CM ICD-9-CM1. Chronic left shoulder pain M25.512 719.41G89.29 338.292. Biceps tendinitis of left shoulder M75.22 726.12I independently interpreted his MRI of the left shoulder without contrast that was done on 07/23/2025 that shows no acute fracture or dislocation, prominent biceps tendinopathy with dislocation of the long head of the biceps tendon from the bicipital groove, generalized rotator cuff tendinopathy, and a superior glenoid labrum tear and AC joint separation with early glenohumeral joint degenerative changes. We discussed how his primary symptoms are stemming from the biceps tendon and glenohumeral joint pathologies, questions answered. I would recommend an ultrasound-guided injection to the glenohumeral joint and biceps tendon. This patient is moderate risk, due to hypertension, but those risks were recognized. We agreed to proceed with scheduling the procedure. Patient voices understanding and agrees with the plan. He has not had any labs recently He reports he was advised by Ortho, if bothering him they could replace the shoulder. Overall pt feels shoulder is doing ok, opting not to replace at this time. He is able to straighten and use the elbow now. He admits that he had a cold for 2 weeks and still has some cough Henry Barreto DO [address] [place] [address], [phone], [facility] 09/25/2025 12:28:26 10/05/2025 text/html ROS as noted in the HPI Pt presents for acute visit He c/o pain to his right side/abd. The pain started on Sunday morning, 2 days ago, with back pain.The pain moved to the side and abd later that day. He c/o that it was worse yesterday than it is today, however still present. H/o hernia repair most recently with [facility]. H/o complete colectomy in 1965 d/t UC.He feels like his intestines are moving to the location of the pain. No change in urinary or bowel output. He c/o dizziness and sob. His sob is all the time and has pain with breathing Lab 09/24/25:BUN 30, Cr 1.7, Na 134.Lipids: Chol 229, Ti 139, HDL 70, LDL 131. Pt mentions he has is having some trouble with his emotions, feels sad. Concerned for thyroid, has had multiple thyroid nodules bx in the past, approx 20 years ago, 2004, resulting negative. Henry Barreto DO [address] [place] [address], [phone], [facility] 10/05/2025 13:49:07
--- OUTSIDE RECORDS SUMMARY | 2025-10-05 16:24 | XMS_ITS | Encounter Summary ---
Author Organization [facility] Address [address] [place] [address] Care Team Providers Care Meter Supervisor Name Role Phone Unavailable Primary Care Provider Unavailabl e Encounter Details Date Type Department Care Team (Late st Contact Info) Description 09/29/2025 External Device Data [facility] ABSTRACTION Provider, Abstract NO ADDRESS ON FILE Social History Tobacco Use Types Packs/Day Years Used Date Smoking Tobacco: Never Smokeless Tobacco: Never Sex and Gender Information Value Date Recorded Sex Assigned at Not on file Legal Sex Male 2:30 AM [employer] Gender Identity Not on file Sexual Orientation Not on file documented as of this encounter Plan of Treatment Not on file documented as of this encounter Visit Diagnoses Not on filedocumented in this encounter
--- OUTSIDE RECORDS SUMMARY | 2025-10-05 16:24 | XMS_ITS | Continuity of Care Document ---
Author Organization [facility] Adolfo Salas [facility] Kayley Chase, [facility] ([facility]) Address [address] [place] [address] Care Team Providers Care Manager Latin Name Role Phone GLENIS HURST Primary Care Provider Assessment Encounter Date Assessment Date Assessment LastModified by Organization Details LastModified Time 09/24/2025 09/24/2025 Document scribed by Orlando Wilhelm Participant Administrator. I was present during interview and exam. I have reviewed and agree with above documentation . Dr. Henry Barreto. [email or web address] Not available 09/24/2025 12:02:25 Plan of Treatment Reminders Order Date Submit Date Provider Last Modified By Organization Details Last Modified Time Details Appointments OFFICE VISIT 20 2024 10:00A M Henry Barreto, DO Not available Not available Not available LAB 2024 11:40A M LAB Not available Not available Not available RECHECK 2025 09:50A M Henry Barreto, DO Not available Not available Not available Lab CMP, serum or plasma 2024 025 [email or web address] 7 [facility], [address], [place], [address], 09/24/2025 14:29:31 lipid panel, blood 2024 025 [email or web address] 7 [facility], [address], [place], [address], 09/24/2025 14:29:31 CBC 2024 025 [email or web address] 7 [facility], [address], [place], [address], 09/24/2025 14:29:31 Referral None recorded . Procedures None recorded . Surgeries None recorded . Imaging None recorded . Medication Orders None recorded . Patient TargetsNo targets recorded. Patient InstructionsNo instructions recorded. Reason for Referral None Reported. Results Created Date Observation Date Name Description Value Unit Range Abnormal Flag Note LastModifiedBy Organization Detail LastModifiedTime 09/24/2009/24/2025 CBC WBC 8.4 x10 4.5 - 10.5 Not Available [facility] [address], [place], [address], 09/24/2025 13:07:43 09/24/2009/24/2025 CBC RBC 5.02 x10 4.30 - 5.90 Not Available [facility] [address] [facility] [address], [place], [address], 09/24/2025 13:07:43 09/24/20 25 09/24/2025 CBC HGB 15.1 g/dL 13.5 - 18.0 Not Available [facility] [address] [facility] [facility] [address], [place], [address], 09/24/2025 13:07:43 09/24/20 25 09/24/2025 CBC HCT 45.6 % 35.0 - 60.0 Not Available [facility] [address] [facility] [address], [place], [address], 09/24/2025 13:07:43 09/24/20 25 09/24/2025 CBC MCV 90.8 fL 80.0 - 99.9 Not Available [facility] [address], [place], [address], 09/24/2025 13:07:43 09/24/20 25 09/24/2025 CBC MCH 30.0 pg 27.0 - 32.0 Not Available [facility] [address] [facility] [address], [place], [address], 09/24/2025 13:07:43 09/24/20 25 09/24/2025 CBC MCHC 33.0 g/dL 32.0 - 36.0 Not Available [facility] [address] [facility] 1, [place], [address], 09/24/2025 13:07:43 09/24/20 25 09/24/2025 CBC RDW 14.1 % 11.5 - 14.5 Not Available [facility] [address] [facility] 1, [place], [address], 09/24/2025 13:07:43 09/24/20 25 09/24/2025 CBC plt 247.9 x10 150.0 - 451.0 Not Available [facility] [address] [facility] [address], [place], [address], 09/24/2025 13:07:43 09/24/20 25 09/24/2025 CBC lymphocytes % 17.0 % 20.0 - 50.0 low Not Available [facility] [address] [facility] 1, [place], [address], 09/24/2025 13:07:43 09/24/20 25 09/24/2025 CBC granulcytes % 73.9 % 30.0 - 70.0 high Not Available [facility] [address] [facility] 1, [place], [address], 09/24/2025 13:07:43 09/24/20 25 09/24/2025 CBC monocytes % 5.8 % 2.0 - 16.0 Not Available [facility] [address] [facility] 1, [place], [address], 09/24/2025 13:07:43 09/24/20 25 09/24/2025 CBC granulcytes# 6.2 x10 Not Destini ilable [facility] [address] [address], [place], [address], 09/24/2025 13:07:43 09/24/20 25 09/24/2025 CBC lymphocytes # 1.4 x10 Not Available [facility] [address] [address], [place], [address], 09/24/2025 13:07:43 09/24/20 25 09/24/2025 CBC monocytes # 0.5 x10 Not Avai lable [facility] [address] [address], [place], [address], 09/24/2025 13:07:43 09/24/20 25 09/24/2025 LIPID PROFI LE (MALE ) cholesterol 229.0 mg/dL 0.0 - 200.0 high Not Available [facility] [address] [facility] [address], [place], [address], 09/24/2025 13:36:33 09/24/20 25 09/24/2025 LIPID PROFI LE (MALE ) trig 139.0 mg/dL 0.0 - 150.0 Not Available [facility] [address] [address], [place], [address], 09/24/2025 13:36:33 09/24/20 25 09/24/2025 LIPID PROFI LE (MALE ) HDL - direct 70.0 mg/dL >40.0 Not Available [facility] [address] [address], [place], [address], 09/24/2025 13:36:33 09/24/20 25 09/24/2025 LIPID PROFI LE (MALE ) VLDL - direct 27.8 mg/dL Not Available [facility] [address] [address], [place], [address], 09/24/2025 13:36:33 09/24/20 25 09/24/2025 LIPID PROFI LE (MALE ) LDL - direct 131.2 mg/dL 0.0 - 130.0 high Not Available [facility] [address] [facility] [address], [place], [address], 09/24/2025 13:36:33 09/24/20 25 09/24/2025 CMP (MALE ) glucose 97.0 mg/dL 60.0 - 99.0 Not Available [facility] [address] [facility] [address], [place], [address], 09/24/2025 13:36:35 09/24/20 25 09/24/2025 CMP (MALE ) BUN (blood urea nitrogen) 30.0 mg/dL 10.0 - 26.0 high Not Available [facility] [address] [facility] 1, [place], [address], 09/24/2025 13:36:35 09/24/20 25 09/24/2025 CMP (MALE ) creatinine (serum) 1.7 mg/dL 0.4 - 1.5 high Not Available [facility] [address] [facility] [address], [place], [address], 09/24/2025 13:36:35 09/24/20 25 09/24/2025 CMP (MALE ) BUN/creatini ne ratio 18.18 ratio Not Available [facility] [address] [facility] 1, [place], [address], 09/24/2025 13:36:35 09/24/20 25 09/24/2025 CMP (MALE ) total protein 7.2 g/dL 6.0 - 8.5 Not Available [facility] [address] [facility] 1, [place], [address], 09/24/2025 13:36:35 09/24/20 25 09/24/2025 CMP (MALE ) total bilirubin 0.8 mg/dL 0.2 - 1.3 Not Available [facility] [address] [facility] [address], [place], [address], 09/24/2025 13:36:35 09/24/20 25 09/24/2025 CMP (MALE ) albumin 4.5 g/dL 3.5 - 5.5 Not Available [facility] [address] [facility] [address], [place], [address], 09/24/2025 13:36:35 09/24/20 25 09/24/2025 CMP (MALE ) globulin 2.7 calc Not Available [facility] [address] [address], [place], [address], 09/24/2025 13:36:35 09/24/20 25 09/24/2025 CMP (MALE ) AST (SGOT) 31.0 U/L 0.0 - 46.0 Not Available [facility] [address] [facility] [address], [place], [address], 09/24/2025 13:36:35 09/24/20 25 09/24/2025 CMP (MALE ) altv (SGPT) 14.0 U/L 13.0 - 69.0 Not Available [facility] [address] [facility] 1, [place], [address], 09/24/2025 13:36:35 09/24/20 25 09/24/2025 CMP (MALE ) A/G ratio 1.7 ratio Not Available [facility] [address] [facility] 1, [place], [address], 09/24/2025 13:36:35 09/24/20 25 09/24/2025 CMP (MALE ) ALP phos 55.0 U/L 30.0 - 140.0 Not Available [facility] [address] [address], [place], [address], 09/24/2025 13:36:35 09/24/20 25 09/24/2025 CMP (MALE ) calcium 8.8 mg/dL 8.4 - 10.5 Not Available [facility] [address] [facility] [address], [place], [address], 09/24/2025 13:36:35 09/24/20 25 09/24/2025 CMP (MALE ) sodium 134.0 mmol/ L 136.0 - 145.0 low Not Available [facility] [address] [facility] [address], [place], [address], 09/24/2025 13:36:35 09/24/20 25 09/24/2025 CMP (MALE ) potassium 3.9 mmol/ L 3.5 - 5.1 Not Available [facility] [address] [facility] [address], [place], [address], 09/24/2025 13:36:35 09/24/20 25 09/24/2025 CMP (MALE ) chloride 101.0 mmol/ L 98.0 - 110.0 Not Available [facility] [address] [facility] [address], [place], [address], 09/24/2025 13:36:35 09/24/20 25 09/24/2025 CMP (MALE ) C02 23.0 mmol/ L 22.0 - 31.0 Not Available [facility] [address] [facility] [address], [place], [address], 09/24/2025 13:36:35 09/24/20 25 09/24/2025 CMP (MALE ) anion gap 10.0 calc Not Available [facility] [address] [facility] [address], [place], [address], 09/24/2025 13:36:35 09/24/20 25 09/24/2025 CMP (MALE ) osmolality 282.9 calc Not Available [facility] [address] [facility] [address], [place], [address], 09/24/2025 13:36:35 09/24/20 25 09/24/2025 CMP (MALE ) eGFR calculated 52.7 Not Available [facility] [address] [facility] [address], [place], [address], 09/24/2025 13:36:35 10/05/20 25 10/05/2025 CT, abdom en + pelvi s, w/ contr ast No observ ation record ed. [facility] [address] [facility], [place], [address], 10/05/2025 15:55:19 Result Notes None recorded. Problems Name Problem SNOMED Code Status Onset Date Resolution Date Notes Provider Name and Address Organization Details Recorded Time Essential hypertension 60319382 Active 2024 Ashley schrader [facility] 15:11:17 Acute poliomyelitis 623020908 Active 2024 Ashley schrader [facility] 5 15:14:25 Large prostate 070726770 Active 2024 Ashley schrader [facility] 5 15:14:48 History of gout 219100904 Active 2024 Ashley schrader [facility] 5 15:15:23 Hyperlipidemia 67306819 Active 2024 Orlando schrader [facility] 5 12:14:22 Ulcerative colitis 95895383 Active 2024 Orlando schrader [facility] 5 12:28:20 Multinodular goiter 926747837 Active 2024 Orlando Choco macrina [facility] 5 12:28:21 Problem Notes None recorded. Procedures Surgical History Date Name Laterality Status Provider Name and Address Organization Details Recorded Time 3 Laceration Repair completed [facility] 03/25/2023 15:17:41 3 Laceration Repair completed WES CAO PA-C [address] [place] [address], [address], [facility] 03/23/2023 10:08:42 Knee Surgery completed [facility] 06/24/2025 15:28:48 procedure on bone of ankle completed [facility] 06/24/2025 15:29:06 excision of colon completed [facility] 06/24/2025 15:29:18 operation on heart completed [facility] 06/24/2025 15:29:46 surgical repair and revision of stoma completed [facility] 06/24/2025 15:30:46 Imaging Results None recorded. Procedure [...] Updated DateTime 5 175.26 cm 28.3 kg/m2 11345.2 4 g 96 % 82 /min 18 /min 130/70 mm[Hg] Ashley James [facility] 5 11:48:59 Social History None recorded. Functional Status None recorded. Mental Status None recorded. Family History Relationship Description Onset Age of this Age Resolved Age Notes LastModified by Organization Details LastModified Time Father No current problems or disability [email or web address] Not available 06/24 15:37:44 Mother No current problems or disability [email or web address] Not available 06/24 15:37:44 Medical History No medical history recorded. Immunizations Vaccine Type Date Status Note Provider Nam e and Address Organization Details Recorded Time Influenza, split virus, trivalent, PF 5 completed CAL schrader [facility] 06/24/2025 17:16:51 Influenza, split virus, quadrivalent, preservative 0 completed Jackie schrader [facility] 03/30/2023 08:17:27 Influenza, adjuvanted, trivalent, PF 8 completed Jackie schrader [facility] 03/30/2023 08:17:27 COVID-19, mRNA, LNP-S, PF, 30 mcg/0.3 mL dose 1 completed Jackie schrader [facility] 03/30/2023 08:17:27 COVID-19, mRNA, LNP-S, PF, 30 mcg/0.3 mL dose 1 completed Jackie schrader [facility] 03/30/2023 08:17:27 COVID-19, mRNA, LNP-S, PF, 30 mcg/0.3 mL dose 2 completed [facility] 03/30/2023 08:17:27 COVID-19, mRNA, LNP-S, PF, 30 mcg/0.3 mL dose 1 completed [facility] 03/30/2023 08:17:27 COVID-19, mRNA, LNP-S, bivalent, PF, 30 mcg/0.3 mL dose 3 [facility] 03/30/2023 08:17:27 COVID-19, mRNA, LNP-S, bivalent, PF, 30 mcg/0.3 mL dose 2 completed [facility] 03/30/2023 08:17:27 Influenza, high-dose, trivalent, PF 7 completed [facility] 03/30/2023 08:17:27 Influenza, split virus, trivalent, preservative 1 completed [facility] 03/30/2023 08:17:27 Influenza, split virus, trivalent, preservative 2 completed [facility] 03/30/2023 08:17:27 COVID-19, mRNA, LNP-S, PF, jan-sucrose, 30 mcg/0.3 mL 3 completed Not Available [facility] 10/05/2025 10:55:32 Influenza, split virus, trivalent, preservative 3 completed Not Available [facility] 10/05/2025 10:55:32 Influenza, high-dose, trivalent, PF 4 completed Not Available [facility] 10/05/2025 10:55:32 COVID-19, mRNA, LNP-S, PF, 50 mcg/0.5 mL 4 completed Not Available [facility] 10/05/2025 10:55:32 Tdap 3 completed WES CAO PA-C [address] [place], [address], [facility]ana 03/23/2023 10:06:04 Past Encounters Encounter ID Performer Location Encounter Start Date Encounter Closed Date Diagnosis/Indication Diagnosis SNOMED-CT Code Diagnosis ICD10 Code Diagnosis IMO Codes Diagnosis Note [id number] Henry Barreto DO [facility] ([facility]) [address] [place] [address] 09/24/2025 11:07:24 09/24/2025 12:55:47 Essential hypertension 85921696 I10 04738 Stable, continue current tx. lab today. History of gout 10773265 4 Z87.39 618394 Stable. Pain in left arm 7926569 00 M79.602 [id number] 09/24/25: Shoulder and elbow, has seen Ortho, now resolved, pt has opted not to do any surgery. Health Concerns Section Related Observation LastModified by Organization Detai ls LastModified Time None Recorded Concern Status LastModified by Organization Details LastModified Time None Recorded Payers Encounter Date Sequence Insurance Name Policy Number Policy Mccain Covered Member ID Mccain Member ID Guarantor Name 09/24/2025 1 [place]: [place] Bo [id number] Austin Bo 09/24/2025 2 [employer] - RETIREE MEDICAL PLAN - SECONDARY TO MEDICARE Austin Bo [id number] Austin Bo Notes Date Note Type Note Provider Name and Address Organization Details Recorded Time 09/24/2025 text/html ROS as noted in the HPI Pt presents for recheck 3 months HTN, Gout, LUE pain/ injury. He saw Sabiha Paniagua on 07/16/25 regarding left elbow and shoulder pain:PLAN:Assessmen t & Plan1. Left elbow fracture:The patient reported [...] chainsaw may help in the healing process. =========He had f/u with [facility] 08/12/25, MRI negative for fx or dislocation of shoulder.ASSESSMENT /PLAN:ICD-10-CM ICD-9-CM1. Chronic left shoulder pain M25.512 719.41G89.29 [...] weeks and still has some cough Henry Barreto, DO [address] [place] [address], [id number], [facility], [facility] 09/25/2025 12:28:26
--- OUTSIDE RECORDS SUMMARY | 2025-10-05 16:24 | XMS_ITS | Clinical Summary ---
[facility] [address] [place]: Epic Prelude ADT RONY MIXON [address] Care Team Providers Care Agronomy Technician Name Role Phone Unavailable Primary Care Provider Unavailabl e Allergies No known active allergies Medications triamcinolone acetonide 0.025 % Lotion Apply topically TO ostomy irritation THREE TIMES DAILY FOR TWO WEEKS. 5 Active tamsulosin (FLOMAX) 0.4 mg capsule Take 1 Capsule by mouth daily. 5 Active sildenafiL (VIAGRA) 100 mg tablet TAKE ONE TABLET BY MOUTH every other DAY NEEDED 30 MINUTES prior TO intercourse 5 Active predniSONE (DELTASONE) 20 mg tablet Take 1 Tablet by mouth daily. 5 Active HYDROcodone-acet aminophen (NORCO) 5-325 mg tablet TAKE ONE TABLET BY MOUTH THREE TIMES DAILY as needed for SEVERE pain 5 Active hydroCHLOROthiaz dayo 25 mg tablet Take 1 Tablet by mouth daily. 5 Active betamethasone dipropionate (DIPROSONE) 0.05 % Lotion Apply a thin layer topically daily TO affected AREA FOR SEVEN DAYS. 5 Active allopurinoL (ZYLOPRIM) 100 mg tablet Take 2 Tablets by mouth daily. 5 Active amLODIPine (NORVASC) 10 mg tablet Take 1 Tablet by mouth daily. 5 Active Active Problems No known active problems Encounters Date Type Department Care Team Description 09/29/2025 External Device Data [facility] Provider, Abstract 09/22/2025 External Device Data [facility] Provider, Abstract 08/17/2025 1:00 PM EDUCATIONAL AIDE Procedure visit [place] [address] [place] [address] Oziel Morrissey, DO Biceps tendinitis of left shoulder (Primary Dx); Chronic left shoulder pain 08/17/2025 12:45 PM EDUCATIONAL AIDE Ancillary Procedure [place] [address] [place] [address] Oziel Morrissey, Biceps tendinitis of left shoulder; Chronic left shoulder pain 08/12/2025 9:30 AM EDUCATIONAL AIDE Office Visit [place] [address] [place] [address] Oziel Morrissey, Chronic left shoulder pain (Primary Dx); Biceps tendinitis of left shoulder 08/10/2025 Orders Only [place] [address] [place] [address] Abraham Alatorre PA-C Acute pain of left shoulder (Primary Dx) 08/10/2025 Tele[address] [place] [address] [place] [id number] Abraham Alatorre PA-C General 07/28/2025 External Device Data [facility]STRACTION Provider, Abstract 07/23/2025 10:53 AM CDT - 07/23/2025 11:59 PM CDT Hospital Encounter [facility] [address] [place] [id number] Abraham Alatorre PA-C Discharge Disposition: Home or Self Care 07/16/2025 10:00 AM CDT Office Visit [place] [address] [place] [id number] Abraham Alatorre PA-C Closed fracture of left elbow, initial encounter (Primary Dx); Acute pain of left shoulder 07/16/2025 9:50 AM CDT Ancillary Procedure [facility] [address] [place] [address] Abraham Alatorre PA-C Closed fracture of left elbow, initial encounter 07/14/2025 External Device Data [facility]STRACTION Provider, Abstract 07/14/2025 External Device Data [facility] ABSTRA[facility] Provider, Abstract 07/14/2025 External Device Data [facility] ABSTRA[facility] Provider, Abstract 07/07/2025 Telephone [facility] - [facility] [address] [place] [address] Jeffery Munoz MD General from Last 3 Months Social History Tobacco Use Types Packs/Day Years Used Date Smoking Tobacco: Never Smokeless Tobacco: Never Tobacco Cessation:Counseling Given: Not Answered Sex and Gender Information Value Date Recorded Sex Assigned at Not on file Legal Sex Male 2:30 AM EDUCATIONAL AIDE Gender Identity Not on file Sexual Orientation Not on file Last Filed Vital Signs Vital Sign Reading Time Taken Comments Blood Pressure 146/88 07/16/2025 9:59 AM CDT Pulse - - Temperature - - Respiratory Rate - - Oxygen Saturation - - Inhaled Oxygen Concentration - - Weight 86.2 kg (190 lb) 08/17/2025 12:59 PM EDUCATIONAL AIDE Height 175.3 cm (5' 9 ) 08/17/2025 12:59 PM EDUCATIONAL AIDE Body Mass Index 28.06 08/17/2025 12:59 PM EDUCATIONAL AIDE Plan of Treatment Health Maintenance Due Date Last Done Comments DTAP/TDAP/TD VACCINES (1 - Tdap) 1968 COLORECTAL SCREENING 1994 Colorectal Cancer Screening 1994 FIT-DNA Q 3 years 1994 FIT/FOBT Q 1 year 1994 Flex Sig/CT Colonography Q 5 years 1994 PNEUMOCOCCAL VACCINE 50+ YEA RS (1 of 1 - PCV) 12/09/1999 ZOSTER VACCINE (1 of 2) 12/09/1999 RSV VACCINE (60+ or ) (1 - 1-dose 75+ series) 2024 INFLUENZA VACCINE (#1) 2025 COVID-19 Vaccine (2024-2 6 season) 2025 06/10/2024, 08/01/2023, 02/14/2023, Additional history exists Procedures Procedure Name Priority Date/Time Associated Diagnosis Comments US GUIDE NEEDLE PLACEMENT Routine 08/17/2025 4:04 PM EDUCATIONAL AIDE Biceps tendinitis of left shoulder Chronic left shoulder pain MRI SHOULDER WO CONTRAST LEFT Routine 07/23/2025 11:29 AM CDT Acute pain of left shoulder XR ELBOW 3+ VW LEFT Routine 07/16/2025 9 :56 AM CDT Closed fracture of left elbow, initial encounter from Last 3 Months Results * US GUIDE NEEDLE PLACEMENT (08/17/2025 4:04 PM EDUCATIONAL AIDE) Anatomical Region Laterality Modality Ultrasound Narrative 08/18/2025 11:03 AM EDUCATIONAL AIDE Procedure: Left biceps tendon sheath injection Ultrasound Guidance: Yes. Ultrasound guidance was necessary to adequately identify the area of injection for appropriate needle placement. Time out performed for Ultrasound Guided Injection Verbal Consent received Yes Laterality Confirmed Yes Site Marked Yes Verbal consent obtained. Discussed risks associated with the procedure including bleeding, infection, and the patient agreed to move forward with the procedure. Landmarks reviewed, and the area prepped in sterile fashion with chlorhexidine pad x 3. Under ultrasound guidance, the biceps tendon was visualized and a 25-gauge needle was inserted into the tendon sheath of the long head of the biceps tendon and 1 cc of 1% lidocaine with Kenalog 40 mg was injected. The needle was withdrawn, hemostasis maintained and a bandage applied. Post-injection instructions and warnings for infection or reaction reviewed with patient. Patient tolerated the procedure well without complications. Procedure: Left glenohumeral joint injection Ultrasound Guidance: Yes. Ultrasound guidance was necessary to adequately identify the area of injection for appropriate needle placement. Time out performed for Ultrasound Guided Injection Verbal Consent received Yes Laterality Confirmed Yes Site Marked Yes Discussed risks associated with the procedure including bleeding, infection, and the patient agreed to move forward with the procedure. Landmarks reviewed, and the area prepped in sterile fashion with chlorhexidine pad x 3. Under ultrasound guidance, the glenohumeral joint was visualized and a 22-gauge 3-inch needle was inserted into the joint. Next, 1cc of 1% lidocaine was injected, followed by kenalog 40 mg, followed by 4 cc of 1% lidocaine using the same needle. The needle was withdrawn, hemostasis maintained and a bandage applied. Post-injection instructions and warnings for infection or reaction reviewed with patient. Patient tolerated the procedure well without complications. us Oziel Morrissey DO US ORDERABLES Final Res ult * MRI SHOULDER WO CONTRAST LEFT (07/23/2025 11:29 AM CDT) Anatomical Region Laterality Modality Upper Extremity Magnetic Resonan ce 07/23/2025 11:2 9 AM CDT Impressions 07/23/2025 12:14 PM CDT IMPRESSION: Please see below. Exam: MRI SHOULDER WO CONTRAST LEFT Date/Time of Exam: 07/23/2025 11:29 AM Reason For Exam: Shoulder pain, adhesive capsulitis suspected, xray done. Diagnosis: Acute pain of left shoulder. Technique: Proton density fat-sat axial, proton density oblique coronal, T1 oblique sagittal, T2 fat-sat oblique coronal and oblique sagittal. Comparison: None Findings: Quality: Motion degradation and incomplete fat saturation. Position: Neutral position. Long head of the biceps tendon: Medial Intra-tendinous dislocation. Biceps anchor: Intact. Labrum: Conventional MRI findings suspicious for tear of the posterior superior glenoid labrum. Rotator cuff: Supraspinatus: Tendinopathy of the insertion and critical zone of the supra spinatus tendon. Infraspinatus: Mild insertional tendinopathy. Subscapularis: Insertional tendinopathy with insertional interstitial delaminating tear present. Mild fatty replacement/volume loss. Teres Minor: Intact. Subacromial/subdeltoid bursa: Mild bursitis. Subcoracoid bursa: Mild bursitis. Glenohumeral joint: Minimal marginal osteophyte formation of the humeral head. Acromioclavicular joint: Widening of the AC joint measuring up to 9 mm in width with marginal osteophyte formation. Axillary recess: Unremarkable. Marrow: No concerning marrow signal abnormality is identified. Soft tissues:Unremarkable. IMPRESSION: 1. Medial intratendinous dislocation of the long head of the biceps tendon from the bicipital groove. 2. Insertional tendinopathy of the supraspinatus and infraspinatus tendons. 3. Insertional tendinopathy with insertional interstitial delamination of the subscapularis tendon insertion on the lesser tuberosity. 4. Conventional MRI findings suspicious for tear of the posterior superior glenoid labrum. 5. Conventional MRI findings suspicious for age indeterminate grade 2 AC separation. 6. Subacromial/subdeltoid and subcoracoid bursitis. 7. Mild/early degenerative changes glenohumeral joint. Narrative Procedure Note Orlando Garcia MD - 07/23/2025 IMPRESSION: Please see below. Exam: MRI SHOULDER WO CONTRAST LEFT Date/Time of Exam: 07/23/2025 11:29 AM Reason For Exam: Shoulder pain, adhesive capsulitis suspected, xray done. Diagnosis: Acute pain of left shoulder. Technique: Proton density fat-sat axial, proton density oblique coronal, T1 oblique sagittal, T2 fat-sat oblique coronal and oblique sagittal. Comparison: None Findings: Quality: Motion degradation and incomplete fat saturation. Position: Neutral position. Long head of the biceps tendon: Medial Intra-tendinous dislocation. Biceps anchor: Intact. Labrum: Conventional MRI findings suspicious for tear of the posterior superior glenoid labrum. Rotator cuff: Supraspinatus: Tendinopathy of the insertion and critical zone of the supra spinatus tendon. Infraspinatus: Mild insertional tendinopathy. Subscapularis: Insertional tendinopathy with insertional interstitial delaminating tear present. Mild fatty replacement/volume loss. Teres Minor: Intact. Subacromial/subdeltoid bursa: Mild bursitis. Subcoracoid bursa: Mild bursitis. Glenohumeral joint: Minimal marginal osteophyte formation of the humeral head. Acromioclavicular joint: Widening of the AC joint measuring up to 9 mm in width with marginal osteophyte formation. Axillary recess: Unremarkable. Marrow: No concerning marrow signal abnormality is identified. Soft tissues:Unremarkable. IMPRESSION: 1. Medial intratendinous dislocation of the long head of the biceps tendon from the bicipital groove. 2. Insertional tendinopathy of the supraspinatus and infraspinatus tendons. 3. Insertional tendinopathy with insertional interstitial delamination of the subscapularis tendon insertion on the lesser tuberosity. 4. Conventional MRI findings suspicious for tear of the posterior superior glenoid labrum. 5. Conventional MRI findings suspicious for age indeterminate grade 2 AC separation. 6. Subacromial/subdeltoid and subcoracoid bursitis. 7. Mild/early degenerative changes glenohumeral joint. us Abraham Alatorre PA-C MR ORDERABLES Final Resul t * XR ELBOW 3+ VW LEFT (07/16/2025 9:56 AM CDT) Anatomical Region Laterality Modality Upper Extremity Computed Radiogr aphy Narrative 07/20/2025 7:06 AM CDT Left elbow x-ray interpretation is as follows: There is a vertical line that is suspicious for nondisplaced fracture of the olecranon. Calcifications are seen at the medial epicondyle likely from past injury. Soft tissue swelling seen at the olecranon process. us Abraham Alatorre PA-C DIAGNOSTIC IMAGING ORDERABL ES Final Result from Last 3 Months Insurance [facility] [address] MEDICARE PART A AND B [facility]
--- OUTSIDE RECORDS SUMMARY | 2025-10-05 16:25 | XMS_ITS | Continuity of Care Document ---
Author Organization [facility] Adolfo Salas [facility] Kayley Chase, [facility] ([facility]) Address [address] [place] [address] Care Team Providers Care Health Safety And Environment Manager Name Role Phone GLENIS HURST Primary Care Provider Assessment Encounter Date Assessment Date Assessment LastModified by Organization Details LastModified Time 10/05/2025 10/05/2025 Document scribed by Orlando Wilhelm [employer]. I was present during interview and exam. [...] available Lab CBC 2024 025 [email or web address] 7 [facility], [address], [place], [address], 10/05/2025 13:29:25 C-react dinesh protein , quantit ative, serum or plasma 2024 025 [email or web address] 7 [facility], [address] , [place], [address], 10/05/2025 13:29:25 CMP, serum or plasma 2024 025 [facility], [address], [place], [address], 10/05/2025 13:52:44 thyrotr opin, QN, serum or plasma 2024 [facility], [address], [address], [place], [address], 10/05/2025 13:51:28 T3, free, serum or plasma 2024 025 [email or web address] [facility], [address], [place], [address], 10/05/2025 13:29:25 T4, free, serum 2024 025 [email or web address] [facility], [address], [facility] [address], [place], [address], 10/05/2025 13:29:25 PTH (parath yroid hormone ), intact, serum or plasma 2024 025 [email or web address] [facility], [address], [place], [address], 10/05/2025 13:29:25 Referral None recorde d. Procedures None recorde d. Surgeries None recorde d. Imaging CT, abdomen + pelvis, w/ contras t - with oral and IV contras t, STAT 2024 [facility] (Scheduling Orders), [address], [place], [address], 10/05/2025 15:55:18 Medication Orders None recorde d. Patient TargetsNo targets recorded. Patient InstructionsNo instructions recorded. Reason for Referral None Reported. Results Created Date Observation Date Name Description Value Unit Range Abnormal Flag Note LastModifiedBy Organization Detail LastModifiedTime 09/24/2009/24/2025 CBC WBC 8.4 x10 4.5 - 10.5 Not Available [facility] [address] [facility], [place], [address], 09/24/2025 13:07:43 09/24/20 25 09/24/2025 CBC RBC 5.02 x10 4.30 - 5.90 Not Available [facility] [address] [facility], [place], [address], 09/24/2025 13:07:43 09/24/20 25 09/24/2025 CBC HGB 15.1 g/dL 13.5 - 18.0 Not Available [facility] [address] [facility], [place], [address], 09/24/2025 13:07:43 09/24/20 25 09/24/2025 CBC HCT 45.6 % 35.0 - 60.0 Not Available [facility] [address] [facility], [place], [address], 09/24/2025 13:07:43 09/24/20 25 09/24/2025 CBC MCV 90.8 fL 80.0 - 99.9 Not Available [facility] [address] [facility], [place], [address], 09/24/2025 13:07:43 09/24/20 25 09/24/2025 CBC MCH 30.0 pg 27.0 - 32.0 Not Available [facility] [address] [facility] [address] [facility], [place], [address], 09/24/2025 13:07:43 09/24/20 25 09/24/2025 CBC MCHC 33.0 g/dL 32.0 - 36.0 Not Available [facility] [address] [facility] 1, [place], [address], 09/24/2025 13:07:43 09/24/20 25 09/24/2025 CBC RDW 14.1 % 11.5 - 14.5 Not Available [facility] [address] [facility] [address] [facility], [place], [address], 09/24/2025 13:07:43 09/24/20 25 09/24/2025 CBC plt 247.9 x10 150.0 - 451.0 Not Available [facility] [address] [facility] [address], [place], [address], 09/24/2025 13:07:43 09/24/20 25 09/24/2025 CBC lymphocytes % 17.0 % 20.0 - 50.0 low Not Available [facility] [address] [facility], [place], [address], 09/24/2025 13:07:43 09/24/20 25 09/24/2025 CBC granulcytes % 73.9 % 30.0 - 70.0 high Not Available [facility] [address] [facility], [place], [address], 09/24/2025 13:07:43 09/24/20 25 09/24/2025 CBC monocytes % 5.8 % 2.0 - 16.0 Not Available [facility] [address] [facility], [place], [address], 09/24/2025 13:07:43 09/24/20 25 09/24/2025 CBC granulcytes# 6.2 x10 Not Destini ilable [facility] [address] [facility], [place], [address], 09/24/2025 13:07:43 09/24/20 25 09/24/2025 CBC lymphocytes # 1.4 x10 Not Available [facility] [address] [facility] 1, [place], [address], 09/24/2025 13:07:43 09/24/20 25 09/24/2025 CBC monocytes # 0.5 x10 Not Avai lable [facility] [address] [address], [place], [address], 09/24/2025 13:07:43 09/24/20 25 09/24/2025 LIPID PROFI LE (MALE ) cholesterol 229.0 mg/dL 0.0 - 200.0 high Not Available [facility] [address], [place], [address], 09/24/2025 13:36:33 09/24/20 25 09/24/2025 LIPID PROFI LE (MALE ) trig 139.0 mg/dL 0.0 - 150.0 Not Available [facility] [address] [address], [place], [address], 09/24/2025 13:36:33 09/24/20 25 09/24/2025 LIPID PROFI LE (MALE ) HDL - direct 70.0 mg/dL >40.0 Not Available [facility] [address] [address], [place], [address], 09/24/2025 13:36:33 09/24/20 25 09/24/2025 LIPID PROFI LE (MALE ) VLDL - direct 27.8 mg/dL Not Available [facility] [address] [address], [place], [address], 09/24/2025 13:36:33 09/24/20 25 09/24/2025 LIPID PROFI LE (MALE ) LDL - direct 131.2 mg/dL 0.0 - 130.0 high Not Available [facility] [address] [address], [place], [address], 09/24/2025 13:36:33 09/24/20 25 09/24/2025 CMP (MALE ) glucose 97.0 mg/dL 60.0 - 99.0 Not Available [facility] [address] [facility] [address], [place], [address], 09/24/2025 13:36:35 09/24/20 25 09/24/2025 CMP (MALE ) BUN (blood urea nitrogen) 30.0 mg/dL 10.0 - 26.0 high Not Available [facility] [address] [facility] [address], [place], [address], 09/24/2025 13:36:35 09/24/20 25 09/24/2025 CMP (MALE ) creatinine (serum) 1.7 mg/dL 0.4 - 1.5 high Not Available [facility] [address] [facility] [address], [place], [address], 09/24/2025 13:36:35 09/24/20 25 09/24/2025 CMP (MALE ) BUN/creatini ne ratio 18.18 ratio Not Available [facility] [address] [facility] [address], [place], [address], 09/24/2025 13:36:35 09/24/20 25 09/24/2025 CMP (MALE ) total protein 7.2 g/dL 6.0 - 8.5 Not Available [facility] [address] [facility] [address], [place], [address], 09/24/2025 13:36:35 09/24/20 25 09/24/2025 CMP (MALE ) total bilirubin 0.8 mg/dL 0.2 - 1.3 Not Available [facility] [address] [facility] [address], [place], [address], 09/24/2025 13:36:35 09/24/20 25 09/24/2025 CMP (MALE ) albumin 4.5 g/dL 3.5 - 5.5 Not Available [facility] [address] [facility] [address], [place], [address], 09/24/2025 13:36:35 09/24/20 25 09/24/2025 CMP (MALE ) globulin 2.7 calc Not Available [facility] [address] [facility], [place], [address], 09/24/2025 13:36:35 09/24/20 25 09/24/2025 CMP (MALE ) AST (SGOT) 31.0 U/L 0.0 - 46.0 Not Available [facility] [address] [facility] [address], [place], [address], 09/24/2025 13:36:35 09/24/20 25 09/24/2025 CMP (MALE ) altv (SGPT) 14.0 U/L 13.0 - 69.0 Not Available [facility] [address] [facility] [address], [place], [address], 09/24/2025 13:36:35 09/24/20 25 09/24/2025 CMP (MALE ) A/G ratio 1.7 ratio Not Available [facility] [address] [facility] [address], [place], [address], 09/24/2025 13:36:35 09/24/20 25 09/24/2025 CMP (MALE ) ALP phos 55.0 U/L 30.0 - 140.0 Not Available [facility] [address] [facility], [place], [address], 09/24/2025 13:36:35 09/24/20 25 09/24/2025 CMP (MALE ) calcium 8.8 mg/dL 8.4 - 10.5 Not Available [facility] [address] [facility], [place], [address], 09/24/2025 13:36:35 09/24/20 25 09/24/2025 CMP (MALE ) sodium 134.0 mmol/ L 136.0 - 145.0 low Not Available [facility] [address], [place], [address], 09/24/2025 13:36:35 09/24/20 25 09/24/2025 CMP (MALE ) potassium 3.9 mmol/ L 3.5 - 5.1 Not Available [facility] [address], [place], [address], 09/24/2025 13:36:35 09/24/20 25 09/24/2025 CMP (MALE ) chloride 101.0 mmol/ L 98.0 - 110.0 Not Available [facility] [address], [place], [address], 09/24/2025 13:36:35 09/24/20 25 09/24/2025 CMP (MALE ) C02 23.0 mmol/ L 22.0 - 31.0 Not Available [facility] [address], [place], [address], 09/24/2025 13:36:35 09/24/20 25 09/24/2025 CMP (MALE ) anion gap 10.0 calc Not Available [facility] [address], [place], [address], 09/24/2025 13:36:35 09/24/20 25 09/24/2025 CMP (MALE ) osmolality 282.9 calc Not Available [facility] [address], [place], [address], 09/24/2025 13:36:35 09/24/20 25 09/24/2025 CMP (MALE ) eGFR calculated 52.7 Not Available [facility] [address], [place], [address], 09/24/2025 13:36:35 10/05/20 25 10/05/2025 CT, abdom en + pelvi s, w/ contr ast No observ ation record ed. [facility] [address] [place], [address], 10/05/2025 15:55:19 Result Notes None recorded. Problems Name Problem SNOMED Code Status Onset Date Resolution Date Notes Provider Name and Address Organization Details Recorded Time Essential hypertension 52098109 Active 2024 Ashley schrader [facility] 5 15:11:17 Acute poliomyelitis 328112176 Active 2024 Ashley James [facility] 5 15:14:25 Large prostate 561680960 Active 2024 Ashley James [facility] 5 15:14:48 History of gout 959487199 Active 2024 Ashley James [facility] 5 15:15:23 Hyperlipidemia 80709265 Active 2024 Orlando Wilhelm [facility] 5 12:14:22 Ulcerative colitis 54548254 Active 2024 Orlando Wilhelm [facility] 5 12:28:20 Multinodular goiter 623623866 Active 2024 Orlando Wilhelm [facility] 5 12:28:21 Problem Notes None recorded. Procedures Surgical History Date Name Laterality Status Provider Name and Address Organization Details Recorded Time 3 Laceration Repair completed Jessica Du [facility] 03/25/2023 15:17:41 3 Laceration Repair completed WES CAO PA-C [address] [place], [address], [facility], Kayley 03/23/2023 10:08:42 Knee Surgery completed [facility], Kayley 06/24/2025 15:28:48 [facility] 15:29:06 excision of colon completed [facility], Kayley 06/24/2025 15:29:18 [facility] 15:29:46 [facility] 15:30:46 Imaging Results None [...] Updated DateTime 5 175.26 cm 27.5 kg/m2 40214.8 8 g 97 % 83 /min 18 /min 128/88 mm[Hg] Ashley James [facility], [facility] 5 12:08:09 Social History None recorded. Functional Status None recorded. Mental Status None recorded. Family History Relationship Description Onset Age of this Age Resolved Age Notes LastModified by Organization Details LastModified Time Father No current problems or disability [email or web address] Not available 06/24 15:37:44 Mother No current problems or disability [email or web address] Not available 06/24 15:37:44 Medical History No medical history recorded. Immunizations Vaccine Type Date Status Note Provider Ant wasserman and Address Organization Details Recorded Time Influenza, split virus, trivalent, PF 5 completed [facility] 06/24/2025 17:16:51 Influenza, split virus, quadrivalent, preservative 0 completed Jackie schrader [facility] 03/30/2023 08:17:27 Influenza, adjuvanted, trivalent, PF 8 completed [facility] 03/30/2023 08:17:27 COVID-19, mRNA, LNP-S, PF, 30 mcg/0.3 mL dose 1 completed Jackie schrader [facility] 03/30/2023 08:17:27 COVID-19, mRNA, LNP-S, PF, 30 mcg/0.3 mL dose 1 completed Jackie schrader [facility] 03/30/2023 08:17:27 COVID-19, mRNA, LNP-S, PF, 30 mcg/0.3 mL dose 2 completed Jackie schrader [facility] 03/30/2023 08:17:27 COVID-19, mRNA, LNP-S, PF, 30 mcg/0.3 mL dose 1 completed Jackie schrader [facility] 03/30/2023 08:17:27 COVID-19, mRNA, LNP-S, bivalent, PF, 30 mcg/0.3 mL dose 3 completed Jackie schrader [facility] 03/30/2023 08:17:27 COVID-19, mRNA, LNP-S, bivalent, PF, 30 mcg/0.3 mL dose 2 completed Jackie schrader [facility] 03/30/2023 08:17:27 Influenza, high-dose, trivalent, PF 7 completed [facility] 03/30/2023 08:17:27 Influenza, split virus, trivalent, preservative 1 completed Jackieleonie schrader [facility] 03/30/2023 08:17:27 Influenza, split virus, trivalent, preservative 2 completed [facility] 03/30/2023 08:17:27 COVID-19, mRNA, LNP-S, PF, jan-sucrose, 30 mcg/0.3 mL 3 completed Not Available [facility] 10/05/2025 10:55:32 Influenza, split virus, trivalent, preservative 3 completed Not Available [facility] 10/05/2025 10:55:32 Influenza, high-dose, trivalent, PF 4 completed Not Available [facility] 10/05/2025 10:55:32 COVID-19, mRNA, LNP-S, PF, 50 mcg/0.5 mL 4 completed Not Available [facility] 10/05/2025 10:55:32 Tdap 3 completed WES CAO PA-C [address] [place] [address], [address], [facility] 03/23/2023 10:06:04 Past Encounters Encounter ID Performer Location Encounter Start Date Encounter Closed Date Diagnosis/Indication Diagnosis SNOMED-CT Code Diagnosis ICD10 Code Diagnosis IMO Codes Diagnosis Note [id number] [facility] [address] [place] [address] 09/24/2025 11:07:24 09/24/2025 12:55:47 Essential hypertension 28082651 I10 55426 Stable, continue current tx. lab today. History of gout 03992820 4 Z87.39 691010 Stable. Pain in left arm 8720758 00 M79.602 [id number] 09/24/25: Shoulder and elbow, has seen Ortho, now resolved, pt has opted not to do any surgery. [id number] Henry BarretoDO [facility] ([facility]) [address] [place] [address] 10/05/2025 10:55:12 10/05/2025 13:49:09 Right sided abdominal pain 017817232 R10.9 [id number] 10/05/25: Discussed pt needing CT to r/o [...] a bland diet right now. Essential hypertension 41021939 I10 51214 Stable, continue current tx. Reviewed and discussed recent lab. Hyperlipidemia 72920939 E78.5 [id number] Reviewed and discussed lipid panel, continue Atorvastat in 40mg daily. Ulcerative colitis 21045 004 K51.919 [id number] S/p total colectomy in 1965. Multinodular goiter 2375 69051 E04.2 [id number] Story: several bx approx 2004, negative. Health Concerns Section Related Observation LastModified by Organization Detai ls LastModified Time None Recorded Concern Status LastModified by Organization Details LastModified Time None Recorded Payers Encounter Date Sequence Insurance Name Policy Number Policy Mccain Covered Member ID Mccain Member ID Guarantor Name 10/05/2025 1 [place]IC[place]: [place] Austin Soriano [id number] Austin Soriano 10/05/2025 2 [employer] - [employer] - SECONDARY TO MEDICARE Austin Soriano [id number] Austin Soriano Notes Date Note Type Note Provider Name and Address Organization Details Recorded Time 10/05/2025 text/html ROS as noted in the [...] 20 years ago, 2004, resulting negative. Henry Barreto, DO [address] [place], [address], [place] R[facility] Kayley Chase 10/05/2025 13:49:07
--- NOTE | 2025-10-05 17:21 | USR_ITS ---
PROCEDURE INFORMATION: Exam: US Abdomen, Limited; Right Upper Quadrant Exam date and time: 10/05/2025 5:34 PM Age: 74 years old Clinical indication: Abnormal findings; Abnormal radiologic finding of the abdomen; Radiologic exam and body structure: Cholelithiasis visualized on CT; Prior surgery; Surgery date: 6+ months; Surgery type: PT has colostomy in the rlq; Additional info: Acute cholecystitis TECHNIQUE: Imaging protocol: Real time ultrasound of the abdomen with image documentation. Limited exam focused on the right upper quadrant. COMPARISON: CT abdomen pelvis wo con [id number] 10/05/2025 2:13 PM FINDINGS: Liver: Normal. No masses. Gallbladder: There is a irregular gallbladder wall thickening perhaps as much as 7 mm. No fluid around the gallbladder. Luminal sludge and at least 1 gallstone noted. Biliary ducts: Normal. No stones. No dilation. Pancreas: Visualized pancreas is unremarkable. Right kidney: Normal. No mass. No hydronephrosis. US/US gall bladder [id number] IMPRESSION: Cholelithiasis with gallbladder wall thickening suspicious for acute cholecystitis.
[2025-10-05 18:19] LABS: Hematocrit 41.5 % (37-53); Hemoglobin 13.70 g/dL (11.27-16.99); Mean Corpuscular HGB Conc 33.0 g/dL (30-55); Mean Corpuscular Hemoglobin 29.2 pg (27-33); Mean Corpuscular Volume 88.5 fl (82-101); Nucleated Red Blood Cells % 0 %; Platelet Count 179 10^3/cmm (157-399); Red Blood Count 4.69 10^6/uL (3.85-5.65); White Blood Count 22.84 10^3/uL (3.29-11.43)
--- NOTE | 2025-10-05 18:35 | W.ED.ABDPA2 ---
HPI - Abdominal Pain General: Chief Complaint: Abdominal Pain Stated Complaint: abd pain, abdnormal finding in ct scan Time Seen by Provider: 10/05/25 17:06 History of Present Illness: 74-year-old male presents emergency room with complaints of abdominal pain. He had seen his primary care doctor previously and was referred to for a CT CT showed acute cholecystitis and she directed to the emergency room. He said symptoms for about the last 3 days worse when he eats. Localizes pain to the right upper quadrant and epigastric area. He has a history of ulcerative colitis and he previously had a colectomy he has a right lower quadrant colostomy. He has not had any hematemesis he has not noticed any melanotic or grossly bloody stool or diarrhea from his colostomy. He does have a remote history of coronary artery disease and had a bypass several years ago. Associated Symptoms: Reports diarrhea, nausea and vomiting; Denies chills, dysuria and fever(s) Related Data Home Medications ?Medication ?Instructions ?Recorded ?Confirmed Unable to Assess 11/02/23 11/02/23 Allergies Allergy/AdvReac Type Severity Reaction Status Date / Time No Known Allergies Allergy Verified 10/05/25 16:37 Review of Systems Const: Denies: fever(s) or chills Card: Denies: chest pain Resp: Denies: dyspnea GI: Reports: abdominal pain, nausea, vomiting and diarrhea : Denies: dysuria, urinary frequency or urinary urgency Musc: Denies: neck pain or back pain Skin/Breast: Denies: rash PFSH ED PFSH: Medical History History of ulcerative colitis History of coronary artery disease Surgical History History of coronary artery bypass graft Physical Exam Const: GENERAL APPEARANCE: cooperative ORIENTATION/CONSCIOUSNESS: Yes awake, Yes oriented to person, Yes oriented to place and Yes oriented to time HENMT: COMMON NORMALS: normocephalic, atraumatic and hearing grossly normal bilaterally HEAD & SCALP: normocephalic and atraumatic Resp: COMMON NORMALS: normal respiratory effort, No retractions, No use of accessory muscles and clear to auscultation bilaterally AUSCULTATION: clear to auscultation bilaterally Cardio: COMMON NORMALS: regular rate, regular rhythm and No murmurs present (Cardio) RATE: regular rate RHYTHM: regular rhythm GI: COMMON NORMALS: No hepatosplenomegaly present AUSCULTATION: Yes normoactive bowel sounds PALPATION: Yes Tenderness to palpation present (GI) Details: RUQ, No Guarding due to palpation present (GI) and Yes No hepatosplenomegaly present Extremity: COMMON NORMALS: normal to inspection, capillary refill normal, no clubbing, cyanosis or edema, no calf tenderness and no pedal edema Neuro: SENSORIUM/ORIENTATION: Yes oriented to person, Yes oriented to place and Yes oriented to time Skin: COMMON NORMALS: no rashes or lesions noted GENERAL SKIN EXAM: no rashes or lesions noted Course Vital Signs: Vital signs: Vital Signs Temperature 97.7 F 10/05/25 16:31 Pulse Rate 86 10/05/25 22:00 Blood Pressure 132/96 10/05/25 22:00 Pulse Oximetry 94 10/05/25 22:00 Oxygen Delivery Me thod Room Air 10/05/25 22:00 MDM - Abdominal Pain Medical Decision Making Patient has acute cholecystitis. Unfortunately also has a history of ulcerative colitis he has a ileostomy from a subtotal colectomy in the right lower quadrant. 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 We consulted Dr. Seymour he has seen the patient in the emergency room he is recommending transfer to a higher level of care because of potential surgical complications between his ulcerative colitis and a previous parastomal hernia. Reviewed findings with the patient. Ultrasound did not show any dilation of the common bile duct there is no choledocholithiasis at this time. Has been given IV fluids steroids and IV antibiotics patient is otherwise stable at this time repeat exam is unremarkable. We contacted [facility] in [place] they have no availability ultimately were able to get him accepted at [facility] in [place]. Patient was transferred via ambulance in stable condition Medical Records I reviewed the patient's medical records. Lab Data I reviewed the patient's lab results. 10/05/25 18:00 10/05/25 18:00 Labs/Radiology: Radiology Impressions Gallbladder Ultrasound 10/05/25 17:21 IMPRESSION: Cholelithiasis with gallbladder wall thickening suspicious for acute cholecystitis. Laboratory Results WBC 22.84 10^3/uL (3.29-11.43) H 10/05/25 18:00 RBC 4.69 10^6/uL (3.85-5.65) 10/05/25 18:00 Hgb 13.70 g/dL (11.27-16.99) 10/05/25 18:00 Hct 41.5 % (37-53) 10/05/25 18:00 MCV 88.5 fl (82-101) 10/05/25 18:00 MCH 29.2 pg (27-33) 10/05/25 18:00 MCHC 33.0 g/dL (30-55) 10/05/25 18:00 RDW 14.1 % (12.1-15.1) 10/05/25 18:00 Plt Count 179 10^3/cmm (157-399) 10/05/25 18:00 MPV 10.6 fL (7.4-10.4) H 10/05/25 18:00 Neut % (Auto) 85.7 % 10/05/25 18:00 Lymph % (Auto) 5.3 % 10/05/25 18:00 [place] % (Auto) 6.8 % 10/05/25 18:00 Eos % (Auto) 0.4 % 10/05/25 18:00 Baso % (Auto) 0.2 % 10/05/25 18:00 Neut # (Auto) 19.57 10^3/uL (1.8-7.7) H 10/05/25 18:00 Lymph # (Auto) 1.2 10^3/uL (0.8-4.8) 10/05/25 18:00 [place] # (Auto) 1.6 10^3/uL (0.2-0.9) H 10/05/25 18:00 Eos # (Auto) 0.1 10^3/uL (0.0-0.8) 10/05/25 18:00 Baso # (Auto) 0.1 10^3/uL (0.0-0.1) 10/05/25 18:00 Nucleated RBC % (auto) 0 % 10/05/25 18:00 Nucleated RBCs # 0.0 /100WBC 10/05/25 18:00 Sodium 137 mmol/L (136-145) 10/05/25 18:00 Potassium 3.2 mmol/L (3.5-5.1) L 10/05/25 18:00 Chloride 96 mmol/L (98-107) L 10/05/25 18:00 Carbon Dioxide 25 mmol/L (22-29) 10/05/25 18:00 Anion Gap 19.2 (5-19) H 10/05/25 18:00 BUN 37 mg/dL (8-23) H 10/05/25 18:00 Creatinine 3.1 mg/dL (0.7-1.2) H 10/05/25 18:00 GFR Calculation Not Reportable 10/05/25 18:00 Glucose 105 mg/dL (65-115) 10/05/25 18:00 Calculated Osmolality 293 mOsm/kg (285-295) 10/05/25 18:00 Lactic Acid 0.9 mmol/L (0.5-2.2) 10/05/25 18:00 Calcium 9.0 mg/dL (8.5-10.5) 10/05/25 18:00 Total Bilirubin 0.7 mg/dL (0.15-1.2) 10/05/25 18:00 AST 30 U/L (0-40) 10/05/25 18:00 ALT 49 U/L (0-41) H 10/05/25 18:00 Alkaline Phosphatase 159 U/L (40-130) H 10/05/25 18:00 Troponin T Baseline 52 ng/L (0-15) H 10/05/25 18:00 Troponin T 60 Minute 44.39 ng/L (0-15) H 10/05/25 19:02 Delta Troponin T -7.61 ABS# (0-10) L 10/05/25 19:02 Total Protein 6.9 g/dL (6.6-8.7) 10/05/25 18:00 Albumin 3.8 g/dL (3.5-5.2) 10/05/25 18:00 Globulin 3.1 g/dL (1.3-4.6) 10/05/25 18:00 Lipase 17 U/L (13-60) 10/05/25 18:00 Urine Color Dark yellow (Yellow) A 10/05/25 18:42 Urine Appearance Cloudy (CLEAR) A 10/05/25 18:42 Urine pH 5.0 (5-7) 10/05/25 18:42 Ur Specific [place] 1.022 (1.005-1.030) 10/05/25 18:42 Urine Protein 3+ (Negative) A 10/05/25 18:42 Urine Glucose (UA) Negative (Normal) 10/05/25 18:42 Urine Ketones Trace (Negative) 10/05/25 18:42 Urine Blood Negative (Negative) 10/05/25 18:42 Urine Nitrate Negative (Negative) 10/05/25 18:42 Urine Bilirubin 1+ (Negative) H 10/05/25 18:42 Urine Urobilinogen 1.0 mg/dL (Negative) 10/05/25 18:42 Ur Leukocyte Esterase Trace (Negative) A 10/05/25 18:42 Urine RBC 0-2 /hpf (0-2) 10/05/25 18:42 Urine WBC 6-10 /hpf (0-5) 10/05/25 18:42 Ur Squamous Epith Cells 6-10 /hpf (0-5) 10/05/25 18:42 Amorphous Sediment Not Reportable 10/05/25 18:42 Urine Bacteria None seen /hpf (NONE) 10/05/25 18:42 Hyaline Casts 23.57 /lpf 10/05/25 18:42 Fine Granular Casts 0-4 /lpf H 10/05/25 18:42 Coarse Granular Casts 0-4 /lpf H 10/05/25 18:42 Other Casts Wbc cast /lpf 10/05/25 18:42 All radiology interpretation(s) finalized by discharge EKG Data EKG 1: I personally reviewed and interpreted this EKG as follows: Interpretation: EKG 10/05/2025 2140 sinus rhythm rate of 83 [place] interval [address] late [address] depression in V 4 and 5. Similar appearance and EKG from 07/31/2024 no acute changes. EKG 2: I personally reviewed and interpreted this EKG as follows: Interpretation: EKG 10/05/20252005 sinus rhythm. Rate of 80. [place] 124 QTc [address] elevation mild ST depression persistent unchanged from EKG done earlier today Discharge Plan Discharge Patient Disposition: Xfer Short-Term Hosp Clinical Impression: Acute cholecystitis, Parastomal hernia, History of ulcerative colitis Condition: Stable Referrals: Henry Barreto DO [Primary Care Provider, [facility]] Patient Instructions: Abdominal Pain (ED) Print Language: Yoruba Coding Level of Care Code ED Topline Beading Machine Tender for Lashell Duran
--- NOTE | 2025-10-05 18:36 | ECG_ITS ---
[facility] Test Date: 2025-10-05 Pat Name: Austin Soriano Department: Room: Gender: Male Chronometer Repairer: : 1950 Requested By: Deshawn Albright Order Number: [id number] Gypsy MD: Yves Donald M.D. Measurements Intervals [place] Rate: 83 P: 21 IA: 126 QRS: -12 QRSD: 109 T: 33 QT: 377 QTc: 445 Interpretive Statements SINUS RHYTHM MILD ST DEPRESSION [0.05+ mV ST DEPRESSION] Compared to ECG 10/05/2025 20:06:00 NO SIGNIFICANT CHANGE Electronically Signed On 10-08-2025 16:18:10 POWERHOUSE HELPER by Yves Donald M.D. [email or web address]
[2025-10-05 18:41] LABS: Alanine Aminotransferase 49 U/L (0-41); Albumin Level 3.8 g/dL (3.5-5.2); Alkaline Phosphatase 159 U/L (40-130); Anion Gap 19.2 (5-19); Aspartate Amino Transferase 30 U/L (0-40); Blood Urea Nitrogen 37 mg/dL (8-23); Calcium 9.0 mg/dL (8.5-10.5); Carbon Dioxide 25 mmol/L (22-29); Chloride 96 mmol/L (98-107); Globulin 3.1 g/dL (1.3-4.6); Glucose 105 mg/dL (65-115); Lipase 17 U/L (13-60); Osmolality Calculated 293 mOsm/kg (285-295); Potassium 3.2 mmol/L (3.5-5.1); Sodium 137 mmol/L (136-145); Total Protein 6.9 g/dL (6.6-8.7)
[2025-10-05] MEDS: morphine 4 mg/mL SDV 1 mL IVP (18:51)
[2025-10-05] MEDS: piperacillin-tazobactam 3.375 GM in sodium chloride 0.9% (plus) 50 ML IV (18:51)
[2025-10-05] MEDS: ondansetron 2 mg/ML SDV 2 mL 4 MG IVP (18:51)
[2025-10-05 18:52] LABS: Lactic Sepsis W/Reflex 0.9 mmol/L (0.5-2.2)
--- NOTE | 2025-10-05 18:54 | P.CONIM_ITS ---
Providers/Reason For Consult 2 Consulting Physician/Specialty*: General Surgery Reason for Consult*: Acute cholecystitis Primary Care Provider: Henry Barreto DO History of Present Illness History of Present Illness Austin Soriano is a 74 year old male Who is referred to our emergency department due to severe abdominal pain in the right upper quadrant.Laboratory workup in the ER is remarkable for elevated white count of 22, normal Vital signs And assist CT scan of the abdomen and pelvis that showed evidence of acute cholecystitis. He has extensive medical and surgical history, including history of ulcerative colitis Which required A subtotal colectomy With an end ileostomy. This was Further complicated by History of parastomal hernia that was repaired in June of last year via midline laparotomy incision and which has resulted in a recurrence of the hernia noticed on recent CAT scan. Review of Systems 2 General: Reports: 10 or more systems reviewed and unremarkable except in HPI and below Medications/Allergies Home Medications ?Medication ?Instructions ?Recorded ?Confirmed ?Last Taken ?Type Unable to Assess 11/02/23 11/02/23 Unkn own History Allergies Allergy/AdvReac Type Severity Reaction Status Date / Time No Known Allergies Allergy Verified 10/05/25 16:37 Current Medications Generic Name Dose Route Start Last Admin Trade Name Freq PRN Reason Stop Dose Admin Sodium Chloride 1,000 mls @ 999 mls/hr 10/05/25 18:12 10/05/25 18:52 Sodium Chloride 0.9% IV 10/05/25 19:12 999 mls/hr .Q1H1M ONE Administration PFSH Acute 2 PFSH: Medical History (Updated 10/05/25 @ 19:05 by Jeffery Seymour MD) History of ulcerative colitis History of coronary artery disease Surgical History (Updated 10/05/25 @ 18:37 by Deshawn Delgado DO) History of coronary artery bypass graft Vitals/I&O/Wt Last Vital Signs Temp 97.7 F 10/05/25 16:31 Pulse 82 10/05/25 16:31 BP 145/76 10/05/25 16:31 Pulse Ox 96 10/05/25 16:31 O2 Del Method Room Air 10/05/25 16:31 Weight last 48 hrs Weight 178 lb Physical Exam 2 Narrative: Patient is alert and oriented, abdominal examination shows severe tenderness in the right upper quadrant, immediately below to the area of tenderness there is an ostomy with a very noticeable parastomal hernia. Data 10/05/25 18:00 10/05/25 18:00 Micro: Microbiology 10/05/25 18:00 Blood Culture - Preliminary Blood SPECIMEN COLLECTED 10/05/25 18:03 Blood Culture - Preliminary Blood SPECIMEN COLLECTED A&P Assessment and plan 1. History of ulcerative colitis: 2. Acute cholecystitis: 3. Parastomal hernia: 4. Ventral incisional hernia: Plan: This is a 74-year-old male presenting with acute cholecystitisIn the setting of a complex surgical history including ulcerative colitis requiring subtotal colectomy, history of end ileostomy with parastomal hernia, history of parastomal hernia repair via midline laparotomy incision and recurrent parastomal hernia. On my personal interpretation of the imaging there is severe gallbladder inflammation and wall thickening, there is a large stone near the neck of the gallbladder. There is also significant Inflammation of the mesentery of the small bowel near the gallbladder and the mesentery of the small bowel leading to the parastomal hernia. Immediately adjacent to the gallbladder and the area of inflammation there are several bowel loops that lead into the parastomal hernia and appears to be closely involved with the gallbladder. In addition to that there is a new midline hernia at the level of the umbilicus. And is important to note the presence of a mesh with several hyperdense tacks in the area of the surgical stoma. Unfortunately in the setting with a complex surgical history and complex surgical abdomen patient will require higher level of care for evaluation and possible cholecystectomy for additional technical expertise and availability of a specialized services as colorectal surgery as there is a good chance that additional manipulation of the small bowel and parastomal hernia will be required in order to access the gallbladder and to safely remove it. Due to the degree of inflammation there is also possibility that patient will require gallbladder drainage before proceeding with a delayed cholecystectomy. Due to the technical complexity of this case patient is not appropriate for level of care at this time. He is stable for transfer and patient and family member are agreeable to be referred to higher level of care. In the interim we will start him on IV fluids, pain control and IV antibiotics with the help of controlling the acute inflammation of the gallbladder will the patient is awaiting transfer to higher level of care to have definitive treatment. General surgery will be remaining available as needed PDMP PDMP Reviewed: Not Reviewed Coding Level of Care Code Acute Code for Chg Fwd Diagnoses History of ulcerative colitis Z87.19 Acute cholecystitis K81.0 Parastomal hernia K43.5 Ventral incisional hernia K43.2
[2025-10-05 18:56] LABS: Glucose Urine UA Negative (Normal); Nitrate Urine Negative (Negative); Specific Gravity, Urine 1.022 (1.005-1.030)
[2025-10-05 18:58] LABS: Add Urine Microscopic? YES; Universal Test for UA Present (0)
[2025-10-05 19:01] LABS: Troponin(5th) Baseline 52 ng/L (0-15)
[2025-10-05 19:10] LABS: UA Slide Review UA Slide Review Perf
--- NOTE | 2025-10-05 20:06 | ECG_ITS ---
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
[2025-10-05] MEDS: sodium chlor 0.9% + KCl 20 mEq 20 MEQ/1,000 ML BAG 150 MEQ IV (22:55)
== END 2025-10-05 22:59 | disposition short-term general hospital (02) ==
PROVIDERS: Emergency Provider Family Medicine; PCP Electrodiagnostic Medicine
DX: K81.0 Acute cholecystitis (principal); K43.5 Parastomal hernia without obstruction or gangrene; Z87.19 Personal history of other diseases of the digestive system; I25.10 Atherosclerotic heart disease of native coronary artery without angina pectoris
CPT/HCPCS: 36415; 76705; 80053; 81001; 83605; 83690; 84484; 85025; 87040; 87086; 93005; 96365; 96366; 96375; 99285; J2270; J2405; J2543; J3480; J7030; J9999